=== PATIENT | female | born 1980 | race Caucasian/White ===

== ENCOUNTER 2016-10-31 08:39 | Emergency (ER) | payer OTHER, SELFPAY ==
[2016-10-31 08:48] VITALS: PULSE 86; O2SAT 97
--- NOTE | 2016-10-31 08:59 | ERPHSYRPT ---
- History of Present Illness Time Seen by Provider: 10/31/16 08:50 Source: patient Exam Limitations: no limitations Patient Subjective Stated Complaint: pt co pain to right foot. she was seen monday for a fracture to that foot and has a walking boot in place, she staes has been working on it and then yesterday her step son set on her foot, Triage Nursing Assessment: bruising no outer aspect of foot, no swelling, has strong pedal pulse, warm to touch, sees scott tomorrow Method of Injury: direct blow Occurred: last week Quality: aching Severity of Pain-Max: moderate Severity of Pain-Current: moderate Lower Extremities Pain: foot: right Modifying Factors: Improves With: movement Allergies/Adverse Reactions: bupropion HCl [From Wellbutrin] Allergy (Verified 10/25/16 08:08) Rash Tetanus Vaccines and Toxoid Allergy (Verified 10/25/16 08:08) Home Medications: Clonazepam [Klonopin] 1 mg PO BID 04/19/15 [History] Quetiapine Fumarate [Seroquel] 100 mg PO HS 02/08/16 [History] Pregabalin [Lyrica] 75 mg PO BID 05/15/16 [History] Lisinopril [Zestril] 10 mg PO DAILY 10/25/16 [History] Tizanidine HCl 4 mg [Zanaflex 4 MG] 4 mg HS 10/31/16 [History] Hx Tetanus, Diphtheria Vaccination/Date Given: Yes Hx Influenza Vaccination/Date Given: No Hx Pneumococcal Vaccination/Date Given: No Immunizations Up to Date: Yes - Review of Systems Constitutional: No Symptoms Eyes: No Symptoms Ears, Nose, & Throat: No Symptoms Respiratory: No Symptoms Cardiac: No Symptoms Abdominal/Gastrointestinal: No Symptoms Musculoskeletal: Joint Pain Skin: No Symptoms Neurological: No Symptoms Psychological: No Symptoms Endocrine: No Symptoms Hematologic/Lymphatic: No Symptoms Immunological/Allergic: No Symptoms - Past Medical History Pertinent Past Medical History: Yes Neurological History: Seizures ENT History: No Pertinent History Cardiac History: Congestive Heart Failure Respiratory History: CHF Endocrine Medical History: No Pertinent History Musculoskeletal History: No Pertinent History, Fibromyalgia GI Medical History: No Pertinent History History: No Pertinent History Psycho-Social History: Anxiety, Bipolar, Depression Female Reproductive Disorders: No Pertinent History Other Medical History: PREECLAMPSIA. 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 - Past Surgical History Past Surgical History: Yes Neuro Surgical History: Other Cardiac: No Pertinent History Respiratory: No Pertinent History Gastrointestinal: No Pertinent History Genitourinary: No Pertinent History Musculoskeletal: No Pertinent History Female Surgical History: Section, Tubal Ligation Other Surgical History: cyst removed from brain as stated per pt - Social History Smoking Status: Never smoker Exposure to second hand smoke: Yes Alcohol Use: Socially Drug Use: none Patient Lives Alone: No Significant Family History: no pertinent family hx - Female History Hx Last Menstrual Period: week ago Hx Now: No (tubal) - Nursing Vital Signs Nursing Vital Signs: Initial Vital Signs Temperature 97.5 F Temperature Source Oral Pulse Rate 86 Respiratory Rate 16 Blood Pressure 117/65 Pain Intensity 8 - Physical Exam General Appearance: moderate distress Eyes, Ears, Nose, Throat Exam: normal ENT inspection Neck Exam: normal inspection, non-tender, supple, full range of motion Cardiovascular/Respiratory Exam: chest non-tender, normal breath sounds, heart sounds normal Gastrointestinal/Abdominal Exam: non-tender, soft Hips Exam: bilateral: non-tender, normal range of motion, no evidence of injury Legs Exam: bilateral leg: non-tender, normal inspection, normal range of motion , no evidence of injury Knees Exam: bilateral knee: non-tender, normal inspection, normal range of motion, no evidence of injury Foot Exam: right foot: ecchymosis, limited range of motion, pain, soft tissue tenderness, swelling, left foot: non-tender, normal inspection, normal range of motion, no evidence of injury Neuro/Tendon Exam: normal sensation, normal motor functions, normal tendon functions, responds to pain Mental Status Exam: alert, oriented x 3, cooperative Skin Exam: normal color, warm, dry SpO2 Interpretation: normal SpO2: 97 Oxygen Delivery: Room Air - Course Nursing assessment & vital signs reviewed: Yes - Progress Progress: unchanged Counseled pt/family regarding: diagnosis, need for follow-up (with ortho as scheduled tomorrow) - Departure Time of Disposition: 09:00 Departure Disposition: Home Clinical Impression: Metatarsal bone fracture Qualifiers: Encounter type: subsequent encounter Metatarsal bone: fifth Fracture type: closed Fracture alignment: nondisplaced Laterality: right Fracture healing: with routine healing Qualified Code(s): S92.354D - Nondisplaced fracture of fifth metatarsal bone, right foot, subsequent encounter for fracture with routine healing Condition: Stable Critical Care Time: No Instructions: Foot Fracture, Contusion
[2016-10-31 09:14] VITALS: BP 120/70
== END 2016-10-31 09:13 | disposition home or self-care (01) ==
LOC: ED 08:39
DX: S92.354D Nondisplaced fracture of fifth metatarsal bone, right foot, subsequent encounter for fracture with routine healing (principal); I50.9 Heart failure, unspecified; Z79.899 Other long term (current) drug therapy
CPT/HCPCS: 99282

== ENCOUNTER 2016-11-07 10:09 | Emergency (ER) | payer OTHER, SELFPAY ==
[2016-11-07] MEDS ORDERED: Zofran 4 MG/2 ML VIAL IV ONE (10:54)
[2016-11-07] MEDS ORDERED: Sodium Chloride 0.9% 1000 ML 1,000 ML IV STA ×2 (10:54→11:39)
[2016-11-07] MEDS ORDERED: Sodium Chloride 0.9% 1000 ML 1,000 ML ONE ×2 (11:00→11:40)
[2016-11-07] MEDS ORDERED: Zofran 4 MG/2 ML VIAL ONE (11:00)
[2016-11-07 11:09] LABS: Mean Cell Volume 92.7 fl (78-100); Mean Corpuscular Hemoglobin 30.8 pg (26-32); Mean Platelet Volume 9.5 fl (6-9.5); Platelet Count 299 K/mm3 (150-450); Red Blood Count 4.93 M/mm3 (4.1-5.4); Red Cell Distribution Width 13.3 % (11.5-14.0); White Blood Count 13.7 K/mm3 (4.0-10.5)
[2016-11-07 11:12] LABS: COMPLETE URINE MICROSCOPIC? YES; Collection Type VOID; Ph 5.5 (5-6)
[2016-11-07 11:22] LABS: Bacteria FEW /HPF (NEGATIVE); Epithelial Cells MODERATE /HPF (FEW); Mucus MODERATE /HPF (NEGATIVE); WBC 0-2 /HPF (0-5)
[2016-11-07 11:22] LABS: ALBUMIN 4.6 g/dL (3.4-5.0); ALKALINE PHOSPHATASE 48 U/L (46-116); ANION GAP 17.3 MEQ/L (5-15); BILIRUBIN,TOTAL 0.7 mg/dL (0.2-1.0); BLOOD UREA NITROGEN 14 mg/dL (9-20); CHLORIDE 103 mEq/L (98-107); Carbon Dioxide 24.3 mEq/L (21-32); Glucose 134 MG/DL (70-110); LIPASE 94 U/L (73-393); Potassium 3.6 mEq/L (3.5-5.1); SGOT/AST 23 U/L (15-37); SGPT/ALT 19 U/L (12-78); SODIUM 141 mEq/L (136-145); Total Protein 8.5 gm/dL (6.4-8.2)
[2016-11-07 11:31] LABS: Platelet Estimate NORMAL (NORMAL); Total Cells Counted 100; Toxic Granulation 2+
--- NOTE | 2016-11-07 11:42 | XRAY ---
Indication: Nausea, vomiting, and diarrhea. Comparison: [facility] August 05, 2016 2 views of the abdomen again nonacute and nonobstructed. Solid organs and osseous structures unremarkable. Single PA chest demonstrates normal heart, lungs, and bony thorax. Impression: Stable negative abdomen and normal 1 view chest.
--- NOTE | 2016-11-07 13:05 | ERPHSYRPT ---
- History of Present Illness Time Seen by Provider: 11/07/16 10:20 Historian: patient Exam Limitations: clinical condition Patient Subjective Stated Complaint: PT REPORTS N/V/D ALL NIGHT-REPORTS ABD PAIN INTERMITTANT-UNSURE OF FEVER-STATES THAT SHE VOMITED HER ANXIETY MEDS Triage Nursing Assessment: PT PALE WARM ET DRY-A & O X 3-RESP NONLABORED-ABD SOFT ET TENDER TO PALP-BOWEL SOUNDS HYPERACTIVE Physician History: PATIENT COMPLAINS OF FREQUENT EPISODES OF EMESIS, DRY HEAVES AND WATERY DIARRHEA. HAS ABDOMINAL CRAMPS. DENIES FEVER, URINARY SYMPTOMS. Timing/Duration: yesterday Activities at Onset: none Abdominal Pain Onset Location: periumbilical Pain Radiation: no radiation Severity of Pain-Max: mild Severity of Pain-Current: none Associated Symptoms: diarrhea, nausea, vomiting Previous symptoms: no prior history Allergies/Adverse Reactions: bupropion HCl [From Wellbutrin] Allergy (Verified 11/07/16 10:24) Rash Tetanus Vaccines and Toxoid Allergy (Verified 11/07/16 10:24) Home Medications: Clonazepam [Klonopin] 1 mg PO BID 04/19/15 [History] Quetiapine Fumarate [Seroquel] 100 mg PO HS 02/08/16 [History] Pregabalin [Lyrica] 75 mg PO BID 05/15/16 [History] Lisinopril [Zestril] 10 mg PO DAILY 10/25/16 [History] Tizanidine HCl 4 mg [Zanaflex 4 MG] 4 mg HS 10/31/16 [History] Hx Tetanus, Diphtheria Vaccination/Date Given: Yes Hx Influenza Vaccination/Date Given: No Hx Pneumococcal Vaccination/Date Given: No Immunizations Up to Date: Yes - Review of Systems Constitutional: No Fever, No Chills Eyes: No Symptoms Ears, Nose, & Throat: No Symptoms Respiratory: No Symptoms, No Cough, No Dyspnea Cardiac: No Symptoms, No Chest Pain, No Edema, No Syncope Abdominal/Gastrointestinal: Abdominal Pain, Nausea, Vomiting, Diarrhea Genitourinary Symptoms: No Symptoms, No Dysuria Musculoskeletal: No Symptoms, No Back Pain, No Neck Pain Skin: No Symptoms, No Rash Neurological: No Dizziness, No Focal Weakness, No Sensory Changes Psychological: No Symptoms Endocrine: No Symptoms All Other Systems: Reviewed and Negative - Past Medical History Pertinent Past Medical History: Yes Neurological History: Seizures ENT History: No Pertinent History Cardiac History: Congestive Heart Failure Respiratory History: CHF Endocrine Medical History: No Pertinent History Musculoskeletal History: No Pertinent History, Fibromyalgia GI Medical History: No Pertinent History History: No Pertinent History Psycho-Social History: Anxiety, Bipolar, Depression Female Reproductive Disorders: No Pertinent History Other Medical History: PREECLAMPSIA. 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 - Past Surgical History Past Surgical History: Yes Neuro Surgical History: Other Cardiac: No Pertinent History Respiratory: No Pertinent History Gastrointestinal: No Pertinent History Genitourinary: No Pertinent History Musculoskeletal: No Pertinent History Female Surgical History: Section, Tubal Ligation Other Surgical History: cyst removed from brain as stated per pt - Social History Smoking Status: Never smoker Exposure to second hand smoke: Yes Alcohol Use: Socially Drug Use: none Patient Lives Alone: No Significant Family History: no pertinent family hx - Female History Hx Last Menstrual Period: 2 WKS AGO Hx Now: No (tubal) - Nursing Vital Signs Nursing Vital Signs: Initial Vital Signs Temperature 99.4 F Temperature Source Oral Pulse Rate 99 Respiratory Rate 20 Blood Pressure 123/83 Pain Intensity 4 - Physical Exam General Appearance: no apparent distress, alert Eye Exam: PERRL/EOMI, eyes nml inspection Ears, Nose, Throat Exam: normal ENT inspection, pharynx normal, moist mucous membranes Neck Exam: normal inspection, non-tender, supple, full range of motion Respiratory Exam: normal breath sounds, lungs clear, No respiratory distress Cardiovascular Exam: regular rate/rhythm, normal heart sounds Gastrointestinal/Abdomen Exam: soft, normal bowel sounds, tenderness (MINIMAL PERIUMBILICAL TENDERNESS), No mass Back Exam: normal inspection, normal range of motion, No CVA tenderness, No vertebral tenderness Extremity Exam: normal inspection, normal range of motion, pelvis stable Neurologic Exam: alert, oriented x 3, cooperative, normal mood/affect, nml cerebellar function, sensation nml, No motor deficits Skin Exam: normal color, warm, dry SpO2: 98 Oxygen Delivery: Room Air - Radiology Exams Hand X-ray Interpretation: Discussed w/ radiologist, Negative Ordered Tests: Active Orders 24 hr Category Date Time Status Clean Catch Urine Specimen STAT Care 11/07/16 10:54 Active IV Insertion STAT Care 11/07/16 10:54 Active OBSTR/ACUTE ABDOMEN SERIES Stat Exams 11/07/16 10:57 Completed AMYLASE Stat Lab 11/07/16 10:30 Completed CBC W DIFF Stat Lab 11/07/16 10:30 Completed CMP Stat Lab 11/07/16 10:30 Completed HCG,QUALITATIVE URINE Stat Lab 11/07/16 11:00 Completed LIPASE Stat Lab 11/07/16 10:30 Completed Manual Differential NC Stat Lab 11/07/16 10:30 Completed UA W/ MICROSCOPIC Stat Lab 11/07/16 11:00 Completed Medication Summary Discontinued Medications Generic Name Dose Route Start Last Admin Trade Name Freq PRN Reason Stop Dose Admin Sodium Chloride 1,000 mls @ 999 mls/hr 11/07/16 10:54 11/07/16 11:09 Sodium Chloride 0.9% 1000 Ml IV 11/07/16 11:54 999 mls/hr .Q1H1M STA Administration Sodium Chloride Confirm 11/07/16 11:00 Sodium Chloride 0.9% 1000 Ml Administered 11/07/16 11:01 Dose 1,000 mls @ ud .ROUTE .STK-MED ONE Sodium Chloride 1,000 mls @ 999 mls/hr 11/07/16 11:39 11/07/16 12:05 Sodium Chloride 0.9% 1000 Ml IV 11/07/16 12:39 999 mls/hr .Q1H1M STA Administration Sodium Chloride Confirm 11/07/16 11:40 Sodium Chloride 0.9% 1000 Ml Administered 11/07/16 11:41 Dose 1,000 mls @ ud .ROUTE .STK-MED ONE Ondansetron HCl 4 mg 11/07/16 10:54 11/07/16 11:09 Zofran 4 Mg/2 Ml Vial IV 11/07/16 10:55 4 mg STAT ONE Administration Ondansetron HCl Confirm 11/07/16 11:00 Zofran 4 Mg/2 Ml Vial Administered 11/07/16 11:01 Dose 4 mg .ROUTE .STK-MED ONE Lab/Rad Data: Laboratory Result Diagrams 11/07/16 10:30 11/07/16 10:30 Laboratory Results 11/07/16 11/07/16 11/07/16 Range/Units 11:00 11:00 10:30 WBC (4.0-10.5) K/mm3 RBC (4.1-5.4) M/mm3 Hgb (12.0-16.0) gm/dl Hct (35-47) % MCV (78-100) fl MCH (26-32) pg MCHC (32-36) g/dl RDW (11.5-14.0) % Plt Count (150-450) K/mm3 MPV (6-9.5) fl Segmented Neutrophils (36.0-66.0) % Lymphocytes (Manual) (24-44) % Monocytes (Manual) (0.0-12.0) % Differential Comment Toxic Granulation Platelet Estimate (NORMAL) Sodium 141 (136-145) mEq/L Potassium 3.6 (3.5-5.1) mEq/L Chloride 103 (98-107) mEq/L Carbon Dioxide 24.3 (21-32) mEq/L Anion Gap 17.3 H (5-15) MEQ/L BUN 14 (9-20) mg/dL Creatinine 0.91 (0.55-1.30) mg/dl Estimated GFR > 60 ML/MIN Glucose 134 H (70-110) MG/DL Calcium 9.3 (8.5-10.1) mg/dL Total Bilirubin 0.7 (0.2-1.0) mg/dL AST 23 (15-37) U/L ALT 19 (12-78) U/L Alkaline Phosphatase 48 (46-116) U/L Serum Total Protein 8.5 H (6.4-8.2) gm/dL Albumin 4.6 (3.4-5.0) g/dL Amylase 41 (25-115) U/L Lipase 94 (73-393) U/L Ur Collection Type VOID Urine Color YELLOW (YELLOW) Urine Appearance SLIGHTLY CLOUDY (CLEAR) Urine pH 5.5 (5-6) Ur Specific Orestes >=1.030 (1.005-1.025) Urine Protein 100 (Negative) Urine Glucose (UA) NEGATIVE (NEGATIVE) mg/dL Urine Ketones MODERATE-40 (NEGATIVE) Urine Nitrite NEGATIVE (NEGATIVE) Urine Bilirubin SMALL (NEGATIVE) Urine Urobilinogen 0.2 (0-1) mg/dL Urine WBC (Auto) NEGATIVE (NEGATIVE) Urine RBC (Auto) MODERATE (0-5) Keyur/ul Urine Microscopic RBC 0-2 (0-2) /HPF Urine Microscopic WBC 0-2 (0-5) /HPF Ur Epithelial Cells MODERATE (FEW) /HPF Urine Bacteria FEW (NEGATIVE) /HPF Urine Mucus MODERATE (NEGATIVE) /HPF Urine HCG, Qual NEGATIVE (Negative) Specimen Received 11/07/16 1100 11/07/16 Range/Units 10:30 WBC 13.7 H (4.0-10.5) K/mm3 RBC 4.93 (4.1-5.4) M/mm3 Hgb 15.2 (12.0-16.0) gm/dl Hct 45.7 (35-47) % MCV 92.7 (78-100) fl MCH 30.8 (26-32) pg MCHC 33.3 (32-36) g/dl RDW 13.3 (11.5-14.0) % Plt Count 299 (150-450) K/mm3 MPV 9.5 (6-9.5) fl Segmented Neutrophils 95 H (36.0-66.0) % Lymphocytes (Manual) 3 L (24-44) % Monocytes (Manual) 2 (0.0-12.0) % Differential Comment NORMAL Toxic Granulation 2+ Platelet Estimate NORMAL (NORMAL) Sodium (136-145) mEq/L Potassium (3.5-5.1) mEq/L Chloride (98-107) mEq/L Carbon Dioxide (21-32) mEq/L Anion Gap (5-15) MEQ/L BUN (9-20) mg/dL Creatinine (0.55-1.30) mg/dl Estimated GFR ML/MIN Glucose (70-110) MG/DL Calcium (8.5-10.1) mg/dL Total Bilirubin (0.2-1.0) mg/dL AST (15-37) U/L ALT (12-78) U/L Alkaline Phosphatase (46-116) U/L Serum Total Protein (6.4-8.2) gm/dL Albumin (3.4-5.0) g/dL Amylase (25-115) U/L Lipase (73-393) U/L Ur Collection Type Urine Color (YELLOW) Urine Appearance (CLEAR) Urine pH (5-6) Ur Specific Orestes (1.005-1.025) Urine Protein (Negative) Urine Glucose (UA) (NEGATIVE) mg/dL Urine Ketones (NEGATIVE) Urine Nitrite (NEGATIVE) Urine Bilirubin (NEGATIVE) Urine Urobilinogen (0-1) mg/dL Urine WBC (Auto) (NEGATIVE) Urine RBC (Auto) (0-5) Keyur/ul Urine Microscopic RBC (0-2) /HPF Urine Microscopic WBC (0-5) /HPF Ur Epithelial Cells (FEW) /HPF Urine Bacteria (NEGATIVE) /HPF Urine Mucus (NEGATIVE) /HPF Urine HCG, Qual (Negative) Specimen Received - Progress Progress: improved Progress Note: 11/07/16 13:02 PATIENT GIVEN 2 LITERS NORMAL SALINE, ZOFRAN 4MG, PROTONIX 40MG IV - Departure Time of Disposition: 13:15 Departure Disposition: Home Clinical Impression: ACUTE GASTROENTERITIS, DEHYDRATION Condition: Stable Critical Care Time: No Additional Instructions: BEGIN CLEAR LIQUID DIET FOR 24 HOURS, THEN ADVANCE DIET TOLERATED. ZOFRAN 4MG EVERY 4 HOURS FOR NAUSEA NEEDED. TAKE OVER THE COUNTER IMODIUM FOR DIARRHEA EVERY 4 HOURS NEEDED FOR 48 HOUR DURATION. Prescriptions: Ondansetron [Zofran Odt] 4 mg PO Q4H PRN PRN #4 tab.rapdis PRN Reason: Nausea
[2016-11-07 13:12] VITALS: BP 122/82; PULSE 95; O2SAT 97
== END 2016-11-07 13:11 | disposition home or self-care (01) ==
LOC: ED 10:09
DX: K52.9 Noninfective gastroenteritis and colitis, unspecified (principal); E86.0 Dehydration; R10.9 Unspecified abdominal pain; R11.2 Nausea with vomiting, unspecified; R19.7 Diarrhea, unspecified
CPT/HCPCS: 36000; 36415; 74022; 80053; 81000; 82150; 83690; 84703; 85025; 96360; 96361; 96374; 99283; J2405

== ENCOUNTER 2017-07-05 09:51 | Emergency (ER) | payer OTHER, SELFPAY ==
[2017-07-05 10:02] VITALS: PULSE 90
--- NOTE | 2017-07-05 10:14 | ERPHSYRPT ---
- History of Present Illness Time Seen by Provider: 07/05/17 10:07 Source: patient Exam Limitations: no limitations Patient Subjective Stated Complaint: Pt states "I have a horrible toothache and I am waiting for my insurance to kick back in. I have tried everything at home and nothing is helping." Triage Nursing Assessment: pt alert and orienting X 3, skin pwd pt ambulates without difficulties, able to speak in full sentences. dental carries noted. Physician History: Pt. with toothache for past 2-3 days. States dull ache to R upper teeth, constant, localized and pain worse with chewing and heat/cold exposure. Pt. taking Motrin and Tylenol with minimal relief Timing/Duration: day(s) (3) Severity: moderate Modifying Factors: Improves With: eating (worsens), acetaminophen (improves) Associated Symptoms: No nausea, No vomiting, No shortness of breath, No fever Allergies/Adverse Reactions: bupropion HCl [From Wellbutrin] Allergy (Verified 11/07/16 10:24) Rash Tetanus Vaccines and Toxoid Allergy (Verified 07/05/17 10:02) Hx Tetanus, Diphtheria Vaccination/Date Given: No Hx Influenza Vaccination/Date Given: No Hx Pneumococcal Vaccination/Date Given: No Immunizations Up to Date: Yes - Review of Systems Constitutional: No Fever, No Chills Eyes: No Symptoms Ears, Nose, & Throat: Mouth Pain, No Loose Teeth Respiratory: No Cough, No Dyspnea Cardiac: No Chest Pain, No Edema, No Syncope Abdominal/Gastrointestinal: No Abdominal Pain, No Nausea, No Vomiting, No Diarrhea Genitourinary Symptoms: No Dysuria Musculoskeletal: No Back Pain, No Neck Pain Skin: No Rash Neurological: No Dizziness, No Focal Weakness, No Sensory Changes Psychological: No Symptoms Endocrine: No Symptoms All Other Systems: Reviewed and Negative - Past Medical History Pertinent Past Medical History: Yes Neurological History: Seizures ENT History: No Pertinent History Cardiac History: Congestive Heart Failure Respiratory History: CHF Endocrine Medical History: No Pertinent History Musculoskeletal History: No Pertinent History, Fibromyalgia GI Medical History: No Pertinent History History: No Pertinent History Psycho-Social History: Anxiety, Bipolar, Depression Female Reproductive Disorders: No Pertinent History Other Medical History: PREECLAMPSIA. 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 - Past Surgical History Past Surgical History: Yes Neuro Surgical History: Other Cardiac: No Pertinent History Respiratory: No Pertinent History Gastrointestinal: No Pertinent History Genitourinary: No Pertinent History Musculoskeletal: No Pertinent History Female Surgical History: Section, Tubal Ligation Other Surgical History: cyst removed from brain as stated per pt - Social History Smoking Status: Never smoker Exposure to second hand smoke: Yes Alcohol Use: Socially Drug Use: none Patient Lives Alone: No Significant Family History: no pertinent family hx - Female History Hx Last Menstrual Period: 06/18/2017 Hx Now: No (tubal) - Nursing Vital Signs Nursing Vital Signs: Initial Vital Signs Temperature 98.8 F 07/05/17 09:55 Pulse Rate 90 07/05/17 09:55 Respiratory Rate 16 07/05/17 09:55 Blood Pressure 156/97 07/05/17 09:55 O2 Sat by Pulse Oximetry 99 07/05/17 09:55 Pain Scale Pain Intensity 7 - Physical Exam General Appearance: no apparent distress, alert Eye Exam: PERRL/EOMI, eyes nml inspection Ears, Nose, Throat Exam: TMs normal, pharynx normal, moist mucous membranes, other (Multiple cavities and dark color teeth noted. Tenderness/swelling to R upper molar area) Neck Exam: normal inspection, non-tender, supple, full range of motion Respiratory Exam: normal breath sounds, lungs clear, No respiratory distress Cardiovascular Exam: regular rate/rhythm, normal heart sounds, normal peripheral pulses Gastrointestinal/Abdomen Exam: soft, normal bowel sounds, No tenderness, No mass Back Exam: normal inspection, normal range of motion, No CVA tenderness, No vertebral tenderness Extremity Exam: normal inspection, normal range of motion, pelvis stable Neurologic Exam: alert, oriented x 3, cooperative, normal mood/affect, nml cerebellar function, nml station & gait, sensation nml, No motor deficits Skin Exam: normal color, warm, dry, No rash Lymphatic Exam: No adenopathy SpO2: 99 Oxygen Delivery: Room Air - Course Nursing assessment & vital signs reviewed: Yes - Progress Progress: improved Counseled pt/family regarding: diagnosis - Departure Time of Disposition: 10:14 Departure Disposition: Home Clinical Impression: Dental caries Condition: Stable Critical Care Time: No Referrals: CHRIS MCCALL [Primary Care Provider] - Instructions: Tooth Decay Additional Instructions: RX: [facility]/[place] Return for worse pain, swelling, fever. vomiting or any problems Prescriptions: Hydrocodone Bit/Acetaminophen [[place] 5-325 Tablet] 1 each PO Q6H PRN PRN #12 tablet PRN Reason: Pain Penicillin V Potassium 500 mg PO QID #40 tablet
[2017-07-05 10:36] VITALS: BP 158/94; O2SAT 98
== END 2017-07-05 10:36 | disposition home or self-care (01) ==
LOC: ED 09:51
DX: K02.9 Dental caries, unspecified (principal)
CPT/HCPCS: 99281; 99283

== ENCOUNTER 2018-12-20 01:12 | Emergency (ER) | payer OTHER ==
[2018-12-20 01:29] VITALS: O2SAT 100
[2018-12-20] MEDS ORDERED: Zofran 4 MG/2 ML VIAL IV ONE (01:35)
[2018-12-20] MEDS ORDERED: Sodium Chloride 0.9% 1000 ML 1,000 ML IV STA (01:35)
[2018-12-20] MEDS ORDERED: Sodium Chloride 0.9% 1000 ML 1,000 ML ONE ×2 (01:38→03:45)
[2018-12-20] MEDS ORDERED: Zofran 4 MG/2 ML VIAL ONE ×2 (01:38→04:17)
--- NOTE | 2018-12-20 01:43 | ERPHSYRPT ---
- History of Present Illness Time Seen by Provider: 12/20/18 01:36 Historian: patient Exam Limitations: no limitations Patient Subjective Stated Complaint: Vomiting Triage Nursing Assessment: Patient ambulated back to ED and transferred self to bed. Patient A+O X3. Skin pink, warm and dry. Patient denies pain or discomfort. Lungs clear a/p gerardo. Patient states she has been vomiting for 3 days. Patient's abdomen soft and round with positive bs x4. Patient states she thinks she ate bad eggs because her entire family was sick after eating them. Physician History: 38-year-old white female arrives with complaint of vomiting for 3 days she denies any abdominal pain she states she is not having diarrhea. She does state that she thinks she might of a bad ache she states other family members had similar symptoms. 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 Past surgical history includes , tubal ligation, colloid cyst removed, . There are blood cultures social history denies tobacco alcohol or illicit drug use Timing/Duration: day(s) (3 days) Activities at Onset: none Quality: other (no pain) Pain Radiation: other (no pain) Severity of Pain-Max: none Severity of Pain-Current: none Modifying Factors: Improves With: other (the patient thinks she might have eaten a bad egg) Associated Symptoms: nausea, vomiting, No back, No chest pain, No diaphoresis, No diarrhea, No fever/chills, No fatigue, No headache, No heartburn, No loss of appetite, No neck pain, No rash, No shortness of breath, No syncope Previous symptoms: no prior history Allergies/Adverse Reactions: bupropion HCl [From Wellbutrin] Allergy (Verified 12/20/18 01:16) Rash Tetanus Vaccines and Toxoid Allergy (Verified 12/20/18 01:16) Hx Tetanus, Diphtheria Vaccination/Date Given: No Hx Influenza Vaccination/Date Given: No Hx Pneumococcal Vaccination/Date Given: No Immunizations Up to Date: Yes - Review of Systems Constitutional: No Fever, No Chills Eyes: No Symptoms Ears, Nose, & Throat: No Symptoms Respiratory: No Cough, No Dyspnea Cardiac: No Chest Pain, No Edema, No Syncope Abdominal/Gastrointestinal: Nausea, Vomiting, No Abdominal Pain, No Diarrhea, No Constipation, No Hematemesis, No Hematochezia, No Melena, No Dysphagia Genitourinary Symptoms: No Dysuria Musculoskeletal: No Back Pain, No Neck Pain Skin: No Rash Neurological: No Dizziness, No Focal Weakness, No Sensory Changes Psychological: No Symptoms Endocrine: No Symptoms All Other Systems: Reviewed and Negative - Past Medical History Pertinent Past Medical History: Yes Neurological History: Seizures ENT History: No Pertinent History Cardiac History: Congestive Heart Failure Respiratory History: CHF Endocrine Medical History: No Pertinent History Musculoskeletal History: No Pertinent History, Fibromyalgia GI Medical History: No Pertinent History History: No Pertinent History Psycho-Social History: Anxiety, Bipolar, Depression Female Reproductive Disorders: No Pertinent History Other Medical History: PREECLAMPSIA. 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 - Past Surgical History Past Surgical History: Yes Neuro Surgical History: Other Cardiac: No Pertinent History Respiratory: No Pertinent History Gastrointestinal: No Pertinent History Genitourinary: No Pertinent History Musculoskeletal: No Pertinent History Female Surgical History: Section, Tubal Ligation Other Surgical History: cyst removed from brain as stated per pt - Social History Smoking Status: Never smoker Exposure to second hand smoke: Yes Alcohol Use: Socially Drug Use: none Patient Lives Alone: No Significant Family History: no pertinent family hx - Female History Hx Last Menstrual Period: 3 weeks agp Hx Now: No - Nursing Vital Signs Nursing Vital Signs: Initial Vital Signs Temperature 97.8 F 12/20/18 01:18 Pulse Rate 128 H 12/20/18 01:18 Respiratory Rate 20 12/20/18 01:18 Blood Pressure 139/94 12/20/18 01:18 O2 Sat by Pulse Oximetry 100 12/20/18 01:18 Pain Scale Pain Intensity 0 - Physical Exam General Appearance: no apparent distress, alert Eye Exam: PERRL/EOMI, eyes nml inspection Ears, Nose, Throat Exam: normal ENT inspection, pharynx normal, moist mucous membranes Neck Exam: normal inspection, non-tender, supple, full range of motion Respiratory Exam: normal breath sounds, lungs clear, No respiratory distress Cardiovascular Exam: regular rate/rhythm, normal heart sounds, capillary refill <2 sec Gastrointestinal/Abdomen Exam: soft, No tenderness, No mass Back Exam: normal inspection, normal range of motion, No CVA tenderness, No vertebral tenderness Extremity Exam: normal inspection, normal range of motion, pelvis stable Neurologic Exam: alert, oriented x 3, cooperative, 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 tested, normal mood/affect, nml cerebellar function, sensation nml, No motor deficits Skin Exam: normal color, warm, dry SpO2 Interpretation: normal (100%) SpO2: 100 Ordered Tests: Active Orders 24 hr Category Date Time Status IV Insertion STAT Care 12/20/18 01:35 Active AMYLASE Stat Lab 12/20/18 01:30 Completed CBC W DIFF Stat Lab 12/20/18 01:30 Completed CMP Stat Lab 12/20/18 01:30 Completed CULTURE,URINE Stat Lab 12/20/18 01:30 Received HCG QUALITATIVE,SERUM Stat Lab 12/20/18 01:30 Completed LIPASE Stat Lab 12/20/18 01:30 Completed UA W/RFX UR CULTURE Stat Lab 12/20/18 01:30 Completed UA W/RFX UR CULTURE Stat Lab 12/20/18 01:35 Uncollected Medication Summary Discontinued Medications Generic Name Dose Route Start Last Admin Trade Name Freq PRN Reason Stop Dose Admin Sodium Chloride 1,000 mls @ 999 mls/hr 12/20/18 01:35 12/20/18 04:07 Sodium Chloride 0.9% 1000 Ml IV 12/20/18 02:35 Infused .Q1H1M STA Infusion Sodium Chloride Confirm 12/20/18 01:38 Sodium Chloride 0.9% 1000 Ml Administered 12/20/18 01:39 Dose 1,000 mls @ ud .ROUTE .STK-MED ONE Sodium Chloride Confirm 12/20/18 03:45 Sodium Chloride 0.9% 1000 Ml Administered 12/20/18 03:46 Dose 1,000 mls @ ud .ROUTE .STK-MED ONE Ondansetron HCl 4 mg 12/20/18 01:35 12/20/18 01:38 Zofran 4 Mg/2 Ml Vial IV 12/20/18 01:36 4 mg STAT ONE Administration Ondansetron HCl Confirm 12/20/18 01:38 Zofran 4 Mg/2 Ml Vial Administered 12/20/18 01:39 Dose 4 mg .ROUTE .STK-MED ONE Ondansetron HCl Confirm 12/20/18 04:17 Zofran 4 Mg/2 Ml Vial Administered 12/20/18 04:18 Dose 4 mg .ROUTE .STK-MED ONE Potassium Chloride Confirm 12/20/18 02:51 Klor Con 10 Meq Administered 12/20/18 02:52 Dose 40 meq PO .STK-MED ONE Lab/Rad Data: Laboratory Result Diagrams 12/20/18 01:30 12/20/18 01:30 Laboratory Results 12/20/18 12/20/18 12/20/18 Range/Units 01:30 01:30 01:30 WBC (4.0-10.5) K/mm3 RBC (4.1-5.4) M/mm3 Hgb (12.0-16.0) gm/dl Hct (35-47) % MCV (78-100) fl MCH (26-32) pg MCHC (32-36) g/dl RDW (11.5-14.0) % Plt Count (150-450) K/mm3 MPV (6-9.5) fl Gran % (36.0-66.0) % Eos # (Auto) (0-0.5) Absolute Lymphs (auto) (1.0-4.6) Absolute Monos (auto) (0.0-1.3) Lymphocytes % (24.0-44.0) % Monocytes % (0.0-12.0) % Eosinophils % (0.00-5.0) % Basophils % (0.0-0.4) % Absolute Granulocytes (1.4-6.9) Basophils # (0-0.4) Sodium 139 (137-145) mmol/L Potassium 3.1 L (3.5-5.1) mmol/L Chloride 102 (98-107) mmol/L Carbon Dioxide 18 L (22-30) mmol/L Anion Gap 22.1 H (5-15) MEQ/L BUN 15 (7-17) mg/dL Creatinine 1.04 (0.52-1.04) mg/dL Estimated GFR > 60.0 ML/MIN Glucose 173 H (74-106) mg/dL Calcium 9.8 (8.4-10.2) mg/dL Total Bilirubin 0.70 (0.2-1.3) mg/dL AST 20 (14-36) U/L ALT 19 (0-35) U/L Alkaline Phosphatase 66 (38-126) U/L Serum Total Protein 9.0 H (6.3-8.2) g/dL Albumin 5.4 H (3.5-5.0) g/dL Amylase 69 (30-110) U/L Lipase 27 (23-300) U/L Serum , Qual NEGATIVE (Negative) Urine Color YELLOW (YELLOW) Urine Appearance SLIGHTLY CLOUDY (CLEAR) Urine pH 5.0 (5-6) Ur Specific [place] 1.027 (1.005-1.025) Urine Protein 100 (Negative) Urine Ketones SMALL (NEGATIVE) Urine Blood LARGE (0-5) Key[place]/ul Urine Nitrite NEGATIVE (NEGATIVE) Urine Bilirubin NEGATIVE (NEGATIVE) Urine Urobilinogen NORMAL (0-1) mg/dL Ur Leukocyte Esterase NEGATIVE (NEGATIVE) Urine WBC (Auto) 0-2 (0-5) /HPF Urine RBC (Auto) 51-100 (0-2) /HPF U Hyaline Cast (Auto) 6-10 (0-2) /LPF U Epithel Cells (Auto) RARE (FEW) /HPF Urine Bacteria (Auto) NONE (NEGATIVE) /HPF Urine Mucus (Auto) SLIGHT (NEGATIVE) /HPF Urine Culture Reflexed YES (NO) Urine Glucose NEGATIVE (NEGATIVE) mg/dL 12/20/18 Range/Units 01:30 WBC 13.4 H (4.0-10.5) K/mm3 RBC 4.72 (4.1-5.4) M/mm3 Hgb 14.6 (12.0-16.0) gm/dl Hct 43.5 (35-47) % MCV 92.2 (78-100) fl MCH 30.9 (26-32) pg MCHC 33.6 (32-36) g/dl RDW 13.3 (11.5-14.0) % Plt Count 277 (150-450) K/mm3 MPV 10.5 H (6-9.5) fl Gran % 81.3 H (36.0-66.0) % Eos # (Auto) 0.02 (0-0.5) Absolute Lymphs (auto) 1.44 (1.0-4.6) Absolute Monos (auto) 1.05 (0.0-1.3) Lymphocytes % 10.7 L (24.0-44.0) % Monocytes % 7.8 (0.0-12.0) % Eosinophils % 0.1 (0.00-5.0) % Basophils % 0.1 (0.0-0.4) % Absolute Granulocytes 10.92 H (1.4-6.9) Basophils # 0.01 (0-0.4) Sodium (137-145) mmol/L Potassium (3.5-5.1) mmol/L Chloride (98-107) mmol/L Carbon Dioxide (22-30) mmol/L Anion Gap (5-15) MEQ/L BUN (7-17) mg/dL Creatinine (0.52-1.04) mg/dL Estimated GFR ML/MIN Glucose (74-106) mg/dL Calcium (8.4-10.2) mg/dL Total Bilirubin (0.2-1.3) mg/dL AST (14-36) U/L ALT (0-35) U/L Alkaline Phosphatase (38-126) U/L Serum Total Protein (6.3-8.2) g/dL Albumin (3.5-5.0) g/dL Amylase (30-110) U/L Lipase (23-300) U/L Serum , Qual (Negative) Urine Color (YELLOW) Urine Appearance (CLEAR) Urine pH (5-6) Ur Specific [place] (1.005-1.025) Urine Protein (Negative) Urine Ketones (NEGATIVE) Urine Blood (0-5) Keyur/ul Urine Nitrite (NEGATIVE) Urine Bilirubin (NEGATIVE) Urine Urobilinogen (0-1) mg/dL Ur Leukocyte Esterase (NEGATIVE) Urine WBC (Auto) (0-5) /HPF Urine RBC (Auto) (0-2) /HPF U Hyaline Cast (Auto) (0-2) /LPF U Epithel Cells (Auto) (FEW) /HPF Urine Bacteria (Auto) (NEGATIVE) /HPF Urine Mucus (Auto) (NEGATIVE) /HPF Urine Culture Reflexed (NO) Urine Glucose (NEGATIVE) mg/dL - Progress Progress: improved Progress Note: 12/20/18 05:00 38-year-old white female with history of seizures, CHF during , fibromyalgia, anxiety, bipolar depression who apparently had a colloid cyst removed from her brain in the past. Arrives with complaint of vomiting for 3 days she states that she had eaten a bad egg. On arrival patient with the temperature of 97 8 pulse 128 respiration 20 blood pressure 139/94 patient was 100% oxygen saturation patient's with chemistry which were remarkable for sodium 139 potassium 3.1 chloride 102 bicarbonate 18 BUN 15 creatinine 1.04 glucose 173 Patient's CBC white blood cell 13.4 hemoglobin 14.6 hematocrit 43.5 platelets 277 amylase and lipase were normal hCG was negative urinalysis specific gravity 1.027 pH 5.0 there is 100 protein 50-100 red cells, white cells Patient was given Zofran 4 mg IV 2 she was given 2 L of normal saline she was given 40 mEq of potassium chloride secondary to a potassium of 3.1. patient was improved with still mildly tachycardic with a heart rate of around 107-110. I had put out a call for Dr. Morris on for of possible placement on observation continued IV fluids and anti-emetics. However the patient states she does not want to be placed on observation and wants to go home. Will go ahead and place patient on clear liquids write for Zofran. She is to follow-up with Dr. Morris she states she will call him in his office. I had offered to contact Dr. Morris and had actually put in a call for him for possible admission. - Departure Time of Disposition: 05:03 Departure Disposition: Home Clinical Impression: Dehydration, Gastroenteritis, rule out food poisoning Vomiting Qualifiers: Vomiting type: unspecified Vomiting Intractability: non-intractable Nausea presence: with nausea Qualified Code(s): R11.2 - Nausea with vomiting, unspecified Condition: Fair Critical Care Time: No Referrals: MORELIA MORRIS MD [Primary Care Provider] - Instructions: Vomiting -- Adult Additional Instructions: Return home. Plenty of fluids clear fluids only 24-48 hours if nausea vomiting or abdominal pain. Follow-up with Dr. Morris. Zofran as prescribed. Return for acute distress or for severe symptoms. Prescriptions: Ondansetron ODT 4 MG [Zofran Odt 4 mg] 4 mg PO Q6H PRN PRN #10 tab.rapdis PRN Reason: Vomiting
[2018-12-20] MEDS ORDERED: Klor Con 10 MEQ PO ONE (02:51)
[2018-12-20 04:17] LABS: ALBUMIN 5.4 g/dL (3.5-5.0); ALKALINE PHOSPHATASE 66 U/L (38-126); AMYLASE 69 U/L (30-110); BLOOD UREA NITROGEN 15 mg/dL (7-17); CHLORIDE 102 mmol/L (98-107); Calcium 9.8 mg/dL (8.4-10.2); Carbon Dioxide 18 mmol/L (22-30); Creatinine 1 1.04 mg/dL (0.52-1.04); Glucose 173 mg/dL (74-106); LIPASE 27 U/L (23-300); Potassium 3.1 mmol/L (3.5-5.1); SGOT/AST 20 U/L (14-36); SGPT/ALT 19 U/L (0-35); SODIUM 139 mmol/L (137-145)
[2018-12-20 04:18] LABS: ANION GAP 22.1 MEQ/L (5-15)
[2018-12-20 04:27] LABS: BASOPHIL % 0.1 % (0.0-0.4); Basophil (Absolute #) 0.01 (0-0.4); Eosinophil % 0.1 % (0.00-5.0); Eosinophil (Absolute #) 0.02 (0-0.5); Granulocyte Absolute (ANC) 10.92 (1.4-6.9); Granulocytes % 81.3 % (36.0-66.0); Hematocrit 43.5 % (35-47); Hemoglobin 14.6 gm/dl (12.0-16.0); Lymphocyte (Absolute #) 1.44 (1.0-4.6); Lymphocytes % 10.7 % (24.0-44.0); Mean Cell Volume 92.2 fl (78-100); Mean Corpuscular Hemoglobin 30.9 pg (26-32); Mean Corpuscular Hgb Concent. 33.6 g/dl (32-36); Mean Platelet Volume 10.5 fl (6-9.5); Monocyte (Absolute #) 1.05 (0.0-1.3); Monocytes % 7.8 % (0.0-12.0); Platelet Count 277 K/mm3 (150-450); Red Blood Count 4.72 M/mm3 (4.1-5.4); Red Cell Distribution Width 13.3 % (11.5-14.0); White Blood Count 13.4 K/mm3 (4.0-10.5)
[2018-12-20 04:31] LABS: Appearance SLIGHTLY CLOUDY (CLEAR); Bilirubin NEGATIVE (NEGATIVE); Blood LARGE Ery/ul (0-5); Epithelial Cells RARE /HPF (FEW); Glucose NEGATIVE (NEGATIVE); Ketones SMALL (NEGATIVE); Leukocyte Esterase NEGATIVE (NEGATIVE); Mucus SLIGHT /HPF (NEGATIVE); Nitrite NEGATIVE (NEGATIVE); Protein,Urine Dip 100 (Negative); RBC 51-100 /HPF (0-2); Specific Gravity 1.027 (1.005-1.025); Urobilinogen NORMAL mg/dL (0-1); WBC 0-2 /HPF (0-5)
[2018-12-20 05:18] VITALS: BP 120/77; PULSE 110
== END 2018-12-20 05:16 | disposition home or self-care (01) ==
LOC: ED 01:12
DX: E86.0 Dehydration (principal); K52.9 Noninfective gastroenteritis and colitis, unspecified; R11.2 Nausea with vomiting, unspecified; F41.9 Anxiety disorder, unspecified; F31.9 Bipolar disorder, unspecified; I50.9 Heart failure, unspecified; M79.7 Fibromyalgia
CPT/HCPCS: 36000; 36415; 80053; 81001; 81025; 82150; 83690; 85025; 87086; 96360; 96361; 96374; 99284; J2405; A9270-GY

== ENCOUNTER 2019-06-15 10:27 | Emergency (ER) | payer OTHER ==
[2019-06-15] MEDS ORDERED: Augmentin 875-125 Tablet ONE (10:48)
[2019-06-15] MEDS ORDERED: MOTRIN 400 MG ONE (10:48)
--- NOTE | 2019-06-15 10:51 | ERPHSYRPT ---
- History of Present Illness Time Seen by Provider: 06/15/19 10:47 Source: patient Physician History: pt bit last night on the right hand by her dog by accident, family dog is utd, pt is allergic to tetnus vaccine, pt is right handed, indolent appearing puncture of the dorsum of right hand, no bleeding, no other injury, mild positional ache pain Allergies/Adverse Reactions: bupropion HCl [From Wellbutrin] Allergy (Verified 12/20/18 01:16) Rash diphtheria, pertussis, tetanus vacc Allergy (Verified 06/15/19 10:56) paroxetine [From Paxil] Allergy (Verified 06/15/19 10:56) Tetanus Vaccines and Toxoid Allergy (Verified 12/20/18 01:16) Hx Tetanus, Diphtheria Vaccination/Date Given: No Hx Influenza Vaccination/Date Given: No Hx Pneumococcal Vaccination/Date Given: No - Review of Systems Constitutional: No Fever Respiratory: No Dyspnea Abdominal/Gastrointestinal: No Nausea Neurological: No Symptoms - Past Medical History Pertinent Past Medical History: Yes Neurological History: Seizures ENT History: No Pertinent History Cardiac History: High Cholesterol, Hypertension Respiratory History: Asthma Endocrine Medical History: No Pertinent History Musculoskeletal History: Arthritis GI Medical History: No Pertinent History History: No Pertinent History Psycho-Social History: Anxiety, Bipolar, Depression Female Reproductive Disorders: No Pertinent History Other Medical History: PREECLAMPSIA. 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 - Past Surgical History Past Surgical History: Yes Neuro Surgical History: Other Cardiac: No Pertinent History Respiratory: No Pertinent History Gastrointestinal: No Pertinent History Genitourinary: No Pertinent History Musculoskeletal: No Pertinent History Female Surgical History: Section, Tubal Ligation Other Surgical History: cyst removed from brain as stated per pt - Social History Smoking Status: Never smoker Exposure to second hand smoke: Yes Alcohol Use: Socially Drug Use: none Patient Lives Alone: No Significant Family History: no pertinent family hx - Female History Hx Now: No - Nursing Vital Signs Nursing Vital Signs: Initial Vital Signs Temperature 98.6 F 06/15/19 10:34 Pulse Rate 96 H 06/15/19 10:34 Respiratory Rate 16 06/15/19 10:34 Blood Pressure 123/68 06/15/19 10:34 O2 Sat by Pulse Oximetry 96 06/15/19 10:34 Pain Scale Pain Intensity 7 - Physical Exam General Appearance: no apparent distress Eye Exam: eyes nml inspection Neck Exam: normal inspection Respiratory Exam: No respiratory distress Extremity Exam: other (tender dorsum of the right hand, no exit wound, dariusz, nontender wrist, sen and pulses intact) Neurologic Exam: alert, oriented x 3 Skin Exam: warm, dry - Course Nursing assessment & vital signs reviewed: Yes - Radiology Exams Hand X-ray Interpretation: Interpreted by me, No Fracture, Other (no fb) Ordered Tests: Active Orders 24 hr Category Date Time Status Dressing Care ROUTINE Care 06/15/19 10:44 Active HAND (MINIMUM 3 VIEWS) Stat Exams 06/15/19 10:58 Taken Medication Summary Discontinued Medications Generic Name Dose Route Start Last Admin Trade Name Freq PRN Reason Stop Dose Admin Amoxicillin/Clavulanate Potassium 875 mg 06/15/19 10:43 06/15/19 10:53 Augmentin 875-125 Tablet PO 06/15/19 10:44 875 mg STAT ONE Administration Amoxicillin/Clavulanate Potassium Confirm 06/15/19 10:48 Augmentin 875-125 Tablet Administered 06/15/19 10:49 Dose 875 mg .ROUTE .STK-MED ONE Ibuprofen 400 mg 06/15/19 10:43 06/15/19 10:54 Motrin 400 Mg PO 06/15/19 10:44 400 mg STAT ONE Administration Ibuprofen Confirm 06/15/19 10:48 Motrin 400 Mg Administered 06/15/19 10:49 Dose 400 mg .ROUTE .STK-MED ONE - Progress Progress Note: 06/15/19 11:01 see your doctor, return if worse, motrin, augmentin - Departure Departure Disposition: Home Clinical Impression: Dog bite Qualifiers: Encounter type: initial encounter Qualified Code(s): W54.0XXA - Bitten by dog, initial encounter Condition: Stable Critical Care Time: No Referrals: MORELIA MORRIS MD [Primary Care Provider] - Instructions: Wound Care (DC) Prescriptions: Amox Tr/Potass Clav. 875 mg [Augmentin 875-125 Tablet] 875 mg PO BID 10 Days #20 tablet
[2019-06-15] MEDS: Augmentin 875-125 Tablet PO ONE (10:53)
[2019-06-15] MEDS: MOTRIN 400 MG PO ONE (10:54)
[2019-06-15 10:55] VITALS: O2SAT 96
[2019-06-15] MEDS ORDERED: BACIGUENT PACKET ONE (11:03)
[2019-06-15 11:12] VITALS: BP 108/76; PULSE 84
[2019-06-15] MEDS: BACIGUENT PACKET TP ONE (11:17)
--- NOTE | 2019-06-15 20:41 | XRAY ---
Indication: Dog bite. Comparison: None 3 views of the right hand obtained. No bony, articular, or soft tissue abnormalities.
== END 2019-06-15 11:21 | disposition home or self-care (01) ==
LOC: ED 10:27
DX: S61.431A Puncture wound without foreign body of right hand, initial encounter (principal); W54.0XXA Bitten by dog, initial encounter
CPT/HCPCS: 73130; 99284; A9270-GY

== ENCOUNTER 2019-12-12 15:47 | Emergency (ER) | payer OTHER ==
[2019-12-12] MEDS ORDERED: Sodium Chloride 0.9% 1000 ML 1,000 ML IV STA (16:27)
[2019-12-12] MEDS ORDERED: MOTRIN 600 MG PO STA (16:27)
[2019-12-12] MEDS ORDERED: TYLENOL 325 MG PO STA (16:27)
[2019-12-12] MEDS ORDERED: MOTRIN 600 MG ONE (17:06)
[2019-12-12] MEDS ORDERED: TYLENOL 325 MG ONE (17:06)
[2019-12-12] MEDS ORDERED: Sodium Chloride 0.9% 1000 ML 1,000 ML ONE (17:07)
[2019-12-12 18:20] LABS: Appearance CLOUDY (CLEAR); Bilirubin NEGATIVE (NEGATIVE); Blood SMALL Ery/ul (0-5); Epithelial Cells RARE /HPF (FEW); Glucose NEGATIVE (NEGATIVE); Ketones SMALL (NEGATIVE); Leukocyte Esterase NEGATIVE (NEGATIVE); Mucus SLIGHT /HPF (NEGATIVE); Nitrite NEGATIVE (NEGATIVE); Protein,Urine Dip 100 (Negative); RBC 0-2 /HPF (0-2); Specific Gravity 1.019 (1.005-1.025); Urobilinogen 4 mg/dL (0-1)
--- NOTE | 2019-12-12 19:30 | ERPHSYRPT ---
- History of Present Illness Time Seen by Provider: 12/12/19 16:20 Source: patient Exam Limitations: no limitations Patient Subjective Stated Complaint: Pt states "I tested positive for influenza B on monday and I am not getting any better. My back hurts and I am coughing and I cannot eat, I feel horrible." Triage Nursing Assessment: Pt presented alert and oriented X 3, skin pwd Pt ambulates with an upright steady gait, able to speak in clear full sentecnes pt congested, no apparent respiratory distress. Physician History: Patient is a 39-year-old female presents to our ED with complaints of fever cough and back pain. Patient was diagnosed with influenza B 5 days ago symptoms have been constant. No nausea or vomiting. No diarrhea. No rash. No trauma. Patient admits to decreased p.o. 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 Associated Symptoms: No abdominal pain, No chest pain, No headache, No nausea/ vomiting, No shortness of breath, No stiff neck, No syncope, No weakness International travel in last 2 weeks: No Allergies/Adverse Reactions: bupropion HCl [From Wellbutrin] Allergy (Verified 12/20/18 01:16) Rash diphtheria, pertussis, tetanus vacc Allergy (Verified 06/15/19 10:56) paroxetine [From Paxil] Allergy (Verified 06/15/19 10:56) Tetanus Vaccines and Toxoid Allergy (Verified 12/20/18 01:16) Home Medications: Clonazepam 0.5 mg [Klonopin 0.5 MG] 0.5 mg PO TID 06/15/19 [History] Desvenlafaxine Succinate [Pristiq ER] 50 mg PO DAILY 06/15/19 [History] Gemfibrozil [Lopid] 800 mg PO HS 06/15/19 [History] Lisinopril 5 mg [Zestril 5 MG] 5 mg PO DAILY 06/15/19 [History] Pantoprazole 20 mg [Protonix 20MG Tablet] 20 mg PO DAILY 06/15/19 [History ] Pregabalin [Lyrica 100Mg] 100 mg PO BID 06/15/19 [History] Primidone 50 MG [Mysoline 50Mg] 50 mg PO BID 06/15/19 [History] Propranolol HCl 20 mg [Inderal 20 MG] 20 mg PO BID 06/15/19 [History] Propranolol HCl [Propranolol HCl ER] 160 mg PO DAILY 06/15/19 [History] Quetiapine Fumarate [Seroquel] 100 mg PO DAILY 06/15/19 [History] Quetiapine Fumarate [Seroquel] 600 mg PO HS 06/15/19 [History] Zonisamide [Zonegran] 100 mg PO UD 06/15/19 [History] Hx Tetanus, Diphtheria Vaccination/Date Given: No Hx Influenza Vaccination/Date Given: No Hx Pneumococcal Vaccination/Date Given: No Immunizations Up to Date: Yes - Review of Systems Constitutional: No Fever, No Chills Eyes: No Symptoms Ears, Nose, & Throat: No Symptoms Respiratory: No Cough, No Dyspnea Cardiac: No Chest Pain, No Edema, No Syncope Abdominal/Gastrointestinal: No Abdominal Pain, No Nausea, No Vomiting, No Diarrhea Genitourinary Symptoms: Other (Mild CVA tenderness bilaterally), No Dysuria Musculoskeletal: No Back Pain, No Neck Pain Skin: No Symptoms, No Rash Neurological: No Symptoms, No Dizziness, No Focal Weakness, No Sensory Changes Psychological: No Symptoms Endocrine: No Symptoms Hematologic/Lymphatic: No Symptoms Immunological/Allergic: No Symptoms All Other Systems: Reviewed and Negative - Past Medical History Pertinent Past Medical History: Yes Neurological History: Seizures ENT History: No Pertinent History Cardiac History: High Cholesterol, Hypertension Respiratory History: Asthma Endocrine Medical History: No Pertinent History Musculoskeletal History: Arthritis GI Medical History: No Pertinent History History: No Pertinent History Psycho-Social History: Anxiety, Bipolar, Depression Female Reproductive Disorders: No Pertinent History Other Medical History: PREECLAMPSIA. 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 - Past Surgical History Past Surgical History: Yes Neuro Surgical History: Other Cardiac: No Pertinent History Respiratory: No Pertinent History Gastrointestinal: No Pertinent History Genitourinary: No Pertinent History Musculoskeletal: No Pertinent History Female Surgical History: Section, Tubal Ligation Other Surgical History: cyst removed from brain as stated per pt - Social History Smoking Status: Current every day smoker How long have you smoked: years Exposure to second hand smoke: Yes Alcohol Use: Socially Drug Use: none Patient Lives Alone: No Significant Family History: no pertinent family hx - Female History Hx Last Menstrual Period: 12/09/2019 Hx Now: No - Nursing Vital Signs Nursing Vital Signs: Initial Vital Signs Temperature 100.2 F 12/12/19 16:03 Pulse Rate 130 H 12/12/19 16:03 Respiratory Rate 24 12/12/19 16:03 Blood Pressure 116/87 12/12/19 16:03 O2 Sat by Pulse Oximetry 100 12/12/19 16:03 Pain Scale Pain Intensity 2 - Physical Exam General Appearance: no apparent distress, alert Eye Exam: PERRL/EOMI ENT Exam: normal ENT inspection, No pharyngeal erythema, No tonsillar exudate Neck Exam: normal inspection, supple, full range of motion, No stiff neck, No Brudzinski's sign, No Kernig's sign, No meningismus Respiratory Exam: normal breath sounds, lungs clear, no respiratory distress Cardiovascular/Chest Exam: normal heart sounds, regular rate/rhythm, No murmur, No edema Gastrointestinal/Abdominal Exam: soft, non tender, no distention Pelvic Exam: not done Rectal Exam: deferred Extremity Exam: non-tender, normal range of motion, normal inspection, normal capillary refill Neurologic Exam: alert, oriented x 3, 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, 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, normal mood/affect, sensation nml, No motor deficits Skin Exam: normal color, warm, dry, No rash SpO2 Interpretation: normal SpO2: 99 O2 Delivery: Room Air - Radiology Exams Chest X-ray Interpretation: Reviewed by me, Negative, No Pneumonia, No Infiltrates Ordered Tests: Active Orders 24 hr Category Date Time Status IV Insertion STAT Care 12/12/19 16:27 Active CHEST 1 VIEW (PORTABLE) Stat Exams 12/12/19 16:27 Taken CULTURE,URINE Stat Lab 12/12/19 17:20 Received UA W/RFX UR CULTURE Stat Lab 12/12/19 17:20 Completed Medication Summary Discontinued Medications Generic Name Dose Route Start Last Admin Trade Name Martha PRN Reason Stop Dose Admin Acetaminophen 975 mg 12/12/19 16:27 12/12/19 17:10 Tylenol 325 Mg PO 12/12/19 16:28 975 mg STAT STA Administration Acetaminophen Confirm 12/12/19 17:06 Tylenol 325 Mg Administered 12/12/19 17:07 Dose 975 mg .ROUTE .STK-MED ONE Sodium Chloride 1,000 mls @ 999 mls/hr 12/12/19 16:27 12/12/19 18:16 Sodium Chloride 0.9% 1000 Ml IV 12/12/19 17:27 Infused .Q1H1M STA Infusion Sodium Chloride Confirm 12/12/19 17:07 Sodium Chloride 0.9% 1000 Ml Administered 12/12/19 17:08 Dose 1,000 mls @ ud .ROUTE .STK-MED ONE Ibuprofen 600 mg 12/12/19 16:27 12/12/19 17:09 Motrin 600 Mg PO 12/12/19 16:28 600 mg STAT STA Administration Ibuprofen Confirm 12/12/19 17:06 Motrin 600 Mg Administered 12/12/19 17:07 Dose 600 mg .ROUTE .STK-MED ONE Lab/Rad Data: Laboratory Results 12/12/19 Range/Units 17:20 Urine Color PRIYA (YELLOW) Urine Appearance CLOUDY (CLEAR) Urine pH 5.0 (5-6) Ur Specific [place] 1.019 (1.005-1.025) Urine Protein 100 (Negative) Urine Ketones SMALL (NEGATIVE) Urine Blood SMALL (0-5) Keyur/ul Urine Nitrite NEGATIVE (NEGATIVE) Urine Bilirubin NEGATIVE (NEGATIVE) Urine Urobilinogen 4 (0-1) mg/dL Ur Leukocyte Esterase NEGATIVE (NEGATIVE) Urine WBC (Auto) 6-10 (0-5) /HPF Urine RBC (Auto) 0-2 (0-2) /HPF U Hyaline Cast (Auto) 6-10 (0-2) /LPF U Epithel Cells (Auto) RARE (FEW) /HPF Urine Bacteria (Auto) NONE (NEGATIVE) /HPF Urine Mucus (Auto) SLIGHT (NEGATIVE) /HPF Urine Culture Reflexed YES (NO) Urine Glucose NEGATIVE (NEGATIVE) mg/dL - Progress Progress: improved Progress Note: 12/12/19 19:53 Patient reassessed. Tachycardia resolved. UA significant for UTI. IV fluids administered. Patient feels much better. Patient requesting discharge. We called in a prescription for Keflex to address the UTI. Patient voices no other complaints at this time. Counseled pt/family regarding: lab results, diagnosis, need for follow-up, rad results - Departure Departure Disposition: Home Clinical Impression: UTI (urinary tract infection), Influenza, Dehydration Condition: Stable Critical Care Time: No Referrals: MORELIA MORRIS MD [Primary Care Provider] - Instructions: Dehydration, Adult (DC), Urinary Tract Infection, Adult (DC) Additional Instructions: Please follow-up with your family doctor within 48 hours for reevaluation. Discharge/Care Plan LASHAE LYLES was seen on 12/12/19 in the Emergency Room. The patient was counseled regarding Diagnosis,Lab results, Imaging studies, need for follow up and when to return to the Emergency Room. Prescriptions given: Discharge Note I have spoken with the patient and/or caregivers. I have explained the patient' s condition, diagnosis and treatment plan based on the information available to me at this time. I have answered the patient's and/or caregiver's questions and addressed any concerns. The patient and/or caregivers have as good understanding of the patient's diagnosis, condition and treatment plan as can be expected at this point. The vital signs have been stable. The patient's condition is stable and appropriate for discharge from the emergency department. The patient will pursue further outpatient evaluation with the primary care physician or other designated or consulting physician as outlined in the discharge instructions. The patient and/or caregivers are agreeable to this plan of care and follow-up instructions have been explained in detail. The patient and/or caregivers have received these instruction. The patient/and or caregivers are aware that any significant change in condition or worsening of symptoms should prompt an immediate return to this or the closest emergency department or call 911. Prescriptions: Cephalexin Mh 500 mg [Keflex 500 mg] 500 mg PO BID 7 Days #14 capsule
[2019-12-12 20:01] VITALS: BP 124/78; PULSE 95; O2SAT 97
--- NOTE | 2019-12-13 08:34 | XRAY ---
Indication: Ammonia. Comparison: August 03, 2015. Portable chest remains clear. Heart is not enlarged. Bony thorax intact. No new/acute findings. Impression: Stable nonacute chest.
== END 2019-12-12 20:01 | disposition home or self-care (01) ==
LOC: ED 15:47
DX: N39.0 Urinary tract infection, site not specified (principal); J11.1 Influenza due to unidentified influenza virus with other respiratory manifestations; E86.0 Dehydration
CPT/HCPCS: 36000; 71045; 81001; 87077; 87086; 87186; 96360; 99284; A9270-GY

== ENCOUNTER 2020-08-31 07:44 | Emergency (ER) | payer OTHER ==
--- NOTE | 2020-08-31 08:03 | ERPHSYRPT ---
- History of Present Illness Time Seen by Provider: 08/31/20 08:02 Source: patient Exam Limitations: no limitations Physician History: This is a 39-year-old white female who began with a headache yesterday. It has persisted but lessened today. She ended up missing work because of her severe headache. Her headache has responded to [id number] medication. Patient requires a medical screening exam and note for work. Patient desires to return to work. However, she could not get a note from the walk-in clinic or from her primary care doctor in time for her to get to work today. She has no other specific complaints. Timing/Duration: yesterday Head Pain Location: global Severity of Pain-Max: moderate Severity of Pain-Current: mild Recent Head Trauma: no recent headache/trauma, occasional headaches Associated Symptoms: denies symptoms Previous symptoms: no prior history Allergies/Adverse Reactions: bupropion HCl [From Wellbutrin] Allergy (Verified 12/20/18 01:16) Rash diphtheria, pertussis, tetanus vacc Allergy (Verified 06/15/19 10:56) paroxetine [From Paxil] Allergy (Verified 06/15/19 10:56) Tetanus Vaccines and Toxoid Allergy (Verified 12/20/18 01:16) Home Medications: Clonazepam 0.5 mg [Klonopin 0.5 MG] 0.5 mg PO TID 06/15/19 [History] Desvenlafaxine Succinate [Pristiq ER] 50 mg PO DAILY 06/15/19 [History] Gemfibrozil [Lopid] 800 mg PO HS 06/15/19 [History] Lisinopril 5 mg [Zestril 5 MG] 5 mg PO DAILY 06/15/19 [History] Pantoprazole 20 mg [Protonix 20MG Tablet] 20 mg PO DAILY 06/15/19 [History] Pregabalin [Lyrica 100Mg] 100 mg PO BID 06/15/19 [History] Primidone 50 MG [Mysoline 50Mg] 50 mg PO BID 06/15/19 [History] Propranolol HCl 20 mg [Inderal 20 MG] 20 mg PO BID 06/15/19 [History] Propranolol HCl [Propranolol HCl ER] 160 mg PO DAILY 06/15/19 [History] Quetiapine Fumarate [Seroquel] 100 mg PO DAILY 06/15/19 [History] Quetiapine Fumarate [Seroquel] 600 mg PO HS 06/15/19 [History] Zonisamide [Zonegran] 100 mg PO UD 06/15/19 [History] Hx Tetanus, Diphtheria Vaccination/Date Given: No Hx Influenza Vaccination/Date Given: No Hx Pneumococcal Vaccination/Date Given: No Travel Risk - International Travel Have you traveled outside of the country in past 3 weeks: No - Coronavirus Screening Are you exhibiting any of the following symptoms?: No Close contact with a COVID-19 positive Pt in past 14-21 Days: No - Review of Systems Constitutional: No Symptoms Eyes: No Symptoms Ears, Nose, & Throat: No Symptoms Respiratory: No Symptoms Cardiac: No Symptoms Abdominal/Gastrointestinal: No Symptoms Genitourinary Symptoms: No Symptoms Musculoskeletal: No Symptoms Skin: No Symptoms Neurological: Headache Psychological: No Symptoms Endocrine: No Symptoms Hematologic/Lymphatic: No Symptoms Immunological/Allergic: No Symptoms All Other Systems: Reviewed and Negative - Past Medical History Pertinent Past Medical History: Yes Neurological History: Seizures ENT History: No Pertinent History Cardiac History: High Cholesterol, Hypertension Respiratory History: Asthma Endocrine Medical History: No Pertinent History Musculoskeletal History: Arthritis GI Medical History: No Pertinent History History: No Pertinent History Psycho-Social History: Anxiety, Bipolar, Depression Female Reproductive Disorders: No Pertinent History Other Medical History: PREECLAMPSIA. 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 - Past Surgical History Past Surgical History: Yes Neuro Surgical History: Other Cardiac: No Pertinent History Respiratory: No Pertinent History Gastrointestinal: No Pertinent History Genitourinary: No Pertinent History Musculoskeletal: No Pertinent History Female Surgical History: Section, Tubal Ligation Other Surgical History: cyst removed from brain as stated per pt - Social History Smoking Status: Current every day smoker How long have you smoked: years Exposure to second hand smoke: Yes Alcohol Use: Socially Drug Use: none Patient Lives Alone: No Significant Family History: no pertinent family hx - Nursing Vital Signs Nursing Vital Signs: Initial Vital Signs Temperature 98.3 F 08/31/20 07:59 Pulse Rate 106 H 08/31/20 07:59 Respiratory Rate 18 08/31/20 07:59 Blood Pressure 105/85 08/31/20 07:59 O2 Sat by Pulse Oximetry 100 08/31/20 07:59 Pain Scale Pain Intensity 0 - Physical Exam General Appearance: no apparent distress, alert Eye Exam: PERRL/EOMI, eyes nml inspection Ears, Nose, Throat Exam: normal ENT inspection, moist mucous membranes Neck Exam: normal inspection, non-tender, supple, full range of motion Respiratory Exam: normal breath sounds, lungs clear, airway intact, No chest tenderness, No respiratory distress Cardiovascular Exam: regular rate/rhythm, normal heart sounds, normal peripheral pulses Gastrointestinal/Abdominal Exam: soft, normal bowel sounds, No tenderness Back Exam: normal inspection, normal range of motion, No CVA tenderness, No vertebral tenderness Extremity Exam: normal inspection, normal range of motion, pelvis stable Mental Status Exam: alert, 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 3, 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 Exam: normal hearing, normal speech, PERRL Coordination/Gait Exam: normal finger to nose, normal gait, normal cerebellar function Motor/Sensory Exam: no motor deficit, no sensory deficit, no pronator drift Skin Exam: normal color, warm, dry Lymphatic Exam: No adenopathy SpO2 Interpretation: normal O2 Delivery: Room Air - Course Nursing assessment & vital signs reviewed: Yes - Departure Departure Disposition: Home Clinical Impression: Mild headache, Encounter for medical screening examination Condition: Stable Critical Care Time: No Referrals: MORELIA MORRIS MD [Primary Care Provider] - Additional Instructions: Tylenol and ibuprofen for headache. Follow-up with your primary care physician for further management. Forms: Work/School Release Form
[2020-08-31 08:06] VITALS: BP 105/85; PULSE 106; O2SAT 100
== END 2020-08-31 08:44 | disposition home or self-care (01) ==
LOC: ED 07:44
DX: R51.9 Headache, unspecified (principal); Z13.9 Encounter for screening, unspecified
CPT/HCPCS: 99283

== ENCOUNTER 2020-10-02 08:38 | Emergency (ER) | payer OTHER ==
[2020-10-02] MEDS ORDERED: Sodium Chloride 0.9% 1000 ML 1,000 ML IV STA (08:47)
[2020-10-02] MEDS ORDERED: BABY ASPIRIN 81 MG CHEW PO ONE (08:47)
[2020-10-02] MEDS ORDERED: ATARAX 25 MG PO ONE (08:49)
[2020-10-02] MEDS ORDERED: ATARAX 25 MG ONE (08:53)
[2020-10-02] MEDS ORDERED: BABY ASPIRIN 81 MG CHEW ONE (08:53)
[2020-10-02] MEDS ORDERED: Sodium Chloride 0.9% 1000 ML 1,000 ML ONE (08:53)
--- NOTE | 2020-10-02 08:58 | ERPHSYRPT ---
- History of Present Illness Time Seen by Provider: 10/02/20 08:39 Source: patient Exam Limitations: no limitations Patient Subjective Stated Complaint: Pt states "I broke up a dog fight between my dogs this morning and I am out of my clonopin and cannot get it filled until tomorrow." Triage Nursing Assessment: Pt presented alert and oriented X 3, skin pwd. Pt ambulates with an upright steady gait, able to speak in clear full sentences pt in no apparent respiratory distress. Pt speaking rapidly. Physician History: Patient is here with some chest pain, shortness of breath. Patient states it may be an anxiety attack. She states that she is on "lots of psych medications". She states that she broke up a dog fight just prior to arrival. She arrives with palpitations. She states that she is out of her Klonopin since yesterday. She feels this is contributing to her tachycardia and nonspecific chest pain. Location: chest Quality: SOB and palpitations Radiation: None Severity: moderate Duration: this AM Timing: suddenly Modifying factors/associated signs and symptoms: broke up dog fight Allergies/Adverse Reactions: bupropion HCl [From Wellbutrin] Allergy (Verified 12/20/18 01:16) Rash diphtheria, pertussis, tetanus vacc Allergy (Verified 06/15/19 10:56) paroxetine [From Paxil] Allergy (Verified 06/15/19 10:56) Tetanus Vaccines and Toxoid Allergy (Verified 12/20/18 01:16) Home Medications: Clonazepam 0.5 mg [Klonopin 0.5 MG] 0.5 mg PO TID 06/15/19 [History] Desvenlafaxine Succinate [Pristiq ER] 50 mg PO DAILY 06/15/19 [History] Gemfibrozil [Lopid] 800 mg PO HS 06/15/19 [History] Lisinopril 5 mg [Zestril 5 MG] 5 mg PO DAILY 06/15/19 [History] Pantoprazole 20 mg [Protonix 20MG Tablet] 20 mg PO DAILY 06/15/19 [Hist ory] Pregabalin [Lyrica 100Mg] 100 mg PO BID 06/15/19 [History] Primidone 50 MG [Mysoline 50Mg] 50 mg PO BID 06/15/19 [History] Propranolol HCl 20 mg [Inderal 20 MG] 20 mg PO BID 06/15/19 [History] Propranolol HCl [Propranolol HCl ER] 160 mg PO DAILY 06/15/19 [History] Quetiapine Fumarate [Seroquel] 100 mg PO DAILY 06/15/19 [History] Quetiapine Fumarate [Seroquel] 600 mg PO HS 06/15/19 [History] Zonisamide [Zonegran] 100 mg PO UD 06/15/19 [History] Hx Tetanus, Diphtheria Vaccination/Date Given: No Hx Influenza Vaccination/Date Given: No Hx Pneumococcal Vaccination/Date Given: No Immunizations Up to Date: Yes Travel Risk - International Travel Have you traveled outside of the country in past 3 weeks: No - Coronavirus Screening Are you exhibiting any of the following symptoms?: No Close contact with a COVID-19 positive Pt in past 14-21 Days: No - Review of Systems Constitutional: No Fever, No Chills Eyes: No Symptoms Ears, Nose, & Throat: No Symptoms Respiratory: Dyspnea, No Cough Cardiac: Palpitations, No Chest Pain, No Edema, No Syncope Abdominal/Gastrointestinal: No Abdominal Pain, No Nausea, No Vomiting, No Diarrhea Genitourinary Symptoms: No Dysuria Musculoskeletal: No Back Pain, No Neck Pain Skin: No Rash Neurological: No Dizziness, No Focal Weakness, No Sensory Changes Psychological: No Symptoms Endocrine: No Symptoms All Other Systems: Reviewed and Negative - Past Medical History Pertinent Past Medical History: Yes Neurological History: Seizures ENT History: No Pertinent History Cardiac History: High Cholesterol, Hypertension Respiratory History: Asthma Endocrine Medical History: No Pertinent History Musculoskeletal History: Arthritis GI Medical History: No Pertinent History History: No Pertinent History Psycho-Social History: Anxiety, Bipolar, Depression Female Reproductive Disorders: No Pertinent History Other Medical History: PREECLAMPSIA. 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 - Past Surgical History Past Surgical History: Yes Neuro Surgical History: Other Cardiac: No Pertinent History Respiratory: No Pertinent History Gastrointestinal: No Pertinent History Genitourinary: No Pertinent History Musculoskeletal: No Pertinent History Female Surgical History: Section, Tubal Ligation Other Surgical History: cyst removed from brain as stated per pt - Social History Smoking Status: Current every day smoker How long have you smoked: years Exposure to second hand smoke: Yes Alcohol Use: Socially Drug Use: none Patient Lives Alone: No Significant Family History: no pertinent family hx - Female History Hx Last Menstrual Period: 10/01/2020 Hx Now: No - Nursing Vital Signs Nursing Vital Signs: Initial Vital Signs Temperature 99.4 F 10/02/20 08:41 Pulse Rate 128 H 10/02/20 08:41 Respiratory Rate 26 H 10/02/20 08:41 Blood Pressure 155/102 10/02/20 08:41 O2 Sat by Pulse Oximetry 99 10/02/20 08:41 Pain Scale Pain Intensity 0 - Physical Exam General Appearance: no apparent distress, alert Eye Exam: PERRL/EOMI, eyes nml inspection Ears, Nose, Throat Exam: normal ENT inspection, TMs normal, pharynx normal, moist mucous membranes Neck Exam: normal inspection, non-tender, supple, full range of motion Respiratory Exam: normal breath sounds, lungs clear, No respiratory distress Cardiovascular Exam: regular rate/rhythm, normal heart sounds, normal peripheral pulses, tachycardia Gastrointestinal/Abdomen Exam: soft, normal bowel sounds, No tenderness, No mass Back Exam: normal inspection, normal range of motion, No CVA tenderness, No vertebral tenderness Extremity Exam: normal inspection, normal range of motion, pelvis stable Neurologic Exam: alert, oriented x 3, cooperative, normal mood/affect, nml cere bellar function, nml station & gait, sensation nml, No motor deficits Skin Exam: normal color, warm, dry, No rash Lymphatic Exam: No adenopathy SpO2: 99 - Course Nursing assessment & vital signs reviewed: Yes EKG Interpreted by Me: Sinus Tach Ordered Tests: Active Orders 24 hr Category Date Time Status EKG-ER Only STAT Care 10/02/20 08:47 Active IV Insertion STAT Care 10/02/20 08:47 Active CHEST 2 VIEWS (PA AND LAT) Stat Exams 10/02/20 08:48 Completed CBC W DIFF Stat Lab 10/02/20 09:00 Completed CMP Stat Lab 10/02/20 09:00 Completed ETHYL ALCOHOL Stat Lab 10/02/20 09:00 Completed HCG,QUALITATIVE URINE Stat Lab 10/02/20 09:42 Ordered LIPASE Stat Lab 10/02/20 09:00 Completed NT PRO BNP Stat Lab 10/02/20 09:00 Completed TROPONIN Q3H Lab 10/02/20 09:00 Completed TROPONIN Q3H Lab 10/02/20 12:00 Ordered TROPONIN Q3H Lab 10/02/20 15:00 Ordered TROPONIN Q3H Lab 10/02/20 18:00 Ordered TROPONIN Q3H Lab 10/02/20 21:00 Ordered UA W/RFX UR CULTURE Stat Lab 10/02/20 09:42 Ordered Medication Summary Discontinued Medications Generic Name Dose Route Start Last Admin Trade Name Brennanq PRN Reason Stop Dose Admin Aspirin 324 mg 10/02/20 08:47 10/02/20 08:55 Baby Aspirin 81 Mg Chew PO 10/02/20 08:48 324 mg STAT ONE Administration Aspirin Confirm 10/02/20 08:53 Baby Aspirin 81 Mg Chew Administered 10/02/20 08:54 Dose 324 mg .ROUTE .STK-MED ONE Hydroxyzine HCl 50 mg 10/02/20 08:49 10/02/20 08:54 Atarax 25 Mg PO 10/02/20 08:50 50 mg STAT ONE Administration Hydroxyzine HCl Confirm 10/02/20 08:53 Atarax 25 Mg Administered 10/02/20 08:54 Dose 50 mg .ROUTE .STK-MED ONE Sodium Chloride 1,000 mls @ 999 mls/hr 10/02/20 08:47 10/02/20 09:59 Sodium Chloride 0.9% 1000 Ml IV 10/02/20 09:47 Infused .Q1H1M STA Infusion Sodium Chloride Confirm 10/02/20 08:53 Sodium Chloride 0.9% 1000 Ml Administered 10/02/20 08:54 Dose 1,000 mls @ ud .ROUTE .STK-MED ONE Lab/Rad Data: Laboratory Result Diagrams 10/02/20 09:00 10/02/20 09:00 Laboratory Results 10/02/20 10/02/20 10/02/20 Range/Units 09:00 09:00 09:00 WBC 5.7 (4.0-10.5) K/mm3 RBC 4.09 L (4.1-5.4) M/mm3 Hgb 11.9 L (12.0-16.0) gm/dl Hct 36.8 (35-47) % MCV 90.0 (78-100) fl MCH 29.1 (26-32) pg MCHC 32.3 (32-36) g/dl RDW 14.9 H (11.5-14.0) % Plt Count 330 (150-450) K/mm3 MPV 9.4 (7.5-11.0) fl Gran % 50.9 (36.0-66.0) % Eos # (Auto) 0.11 (0-0.5) Absolute Lymphs (auto) 1.99 (1.0-4.6) Absolute Monos (auto) 0.67 (0.0-1.3) Lymphocytes % 35.0 (24.0-44.0) % Monocytes % 11.8 (0.0-12.0) % Eosinophils % 1.9 (0.00-5.0) % Basophils % 0.4 (0.0-0.4) % Absolute Granulocytes 2.89 (1.4-6.9) Basophils # 0.02 (0-0.4) Sodium 135 L (137-145) mmol/L Potassium 3.4 L (3.5-5.1) mmol/L Chloride 106 (98-107) mmol/L Carbon Dioxide 17 L (22-30) mmol/L Anion Gap 15.2 H (5-15) MEQ/L BUN 7 (7-17) mg/dL Creatinine 0.79 (0.52-1.04) mg/dL Estimated GFR > 60.0 ML/MIN Glucose 111 H (74-106) mg/dL Calcium 9.1 (8.4-10.2) mg/dL Total Bilirubin 0.40 (0.2-1.3) mg/dL AST 21 (14-36) U/L ALT 8 (0-35) U/L Alkaline Phosphatase 60 (38-126) U/L Troponin I < 0.012 (0.000-0.034) ng/mL NT-Pro-B Natriuret Pep 48.7 (0-450) pg/mL Serum Total Protein 7.8 (6.3-8.2) g/dL Albumin 4.7 (3.5-5.0) g/dL Lipase 61 (23-300) U/L Ethyl Alcohol < 10 (0-10) mg/dL - Progress Progress: improved Progress Note: 10/02/20 08:58 Differential diagnosis includes STEMI infection pneumonia anxiety - We'll obtain basic labs, fluids, EKG, troponin, chest x-ray - I feel comfortable with one time negative troponin given symptoms have improved and started greater then 6 hours ago. - EKG shows no ST changes - my read. See full read below. - O2 saturations consistently greater than 95%. - CXR shows no pneumonia, pneumothorax - my read -Fluids, Atarax, aspirin 10/02/20 10:03 Labs and work-up largely unremarkable. Patient feeling improved with medication and fluids here. Overall, I do believe the patient is safe to be discharged home. I do believe this is most likely secondary to her being out of her Klonopin. Patient is unable to fill it until tomorrow because she has used all of it for the month. I did discuss this with the patient has a potential sign of medication misuse, or abuse. Tachycardia has completely resolved at this point in time. Plan of care was discussed with patient and all questions answered. The patient is agreeable to be discharged home and both verbal and printed discharge instructions were provided.The patient agreed to seek outpatient follow up as discussed. The patient was given strict instructions to return to the emergency department for worsening symptoms or any other emergent concerns. The patient verbalized understanding. 10/02/20 10:10 - Departure Departure Disposition: Home Clinical Impression: Shortness of breath Condition: Stable Critical Care Time: No Referrals: MORELIA MORRIS MD [Primary Care Provider] - Instructions: Anxiety, Adult (DC)
--- NOTE | 2020-10-02 09:27 | XRAY ---
Indication: Chest pain. Anxiety. Comparison: December 12, 2019. PA/lateral chest again demonstrates normal heart, lungs, and bony thorax.
[2020-10-02 09:28] LABS: Absolute Neutrophil Ct (ANC) 2.89 (1.4-6.9); BASOPHIL % 0.4 % (0.0-0.4); Basophil (Absolute #) 0.02 (0-0.4); Eosinophil % 1.9 % (0.00-5.0); Eosinophil (Absolute #) 0.11 (0-0.5); Hematocrit 36.8 % (35-47); Hemoglobin 11.9 gm/dl (12.0-16.0); Lymphocyte (Absolute #) 1.99 (1.0-4.6); Mean Corpuscular Hemoglobin 29.1 pg (26-32); Mean Corpuscular Hgb Concent. 32.3 g/dl (32-36); Mean Platelet Volume 9.4 fl (7.5-11.0); Monocyte (Absolute #) 0.67 (0.0-1.3); Monocytes % 11.8 % (0.0-12.0); Neutrophil % 50.9 % (36.0-66.0); Platelet Count 330 K/mm3 (150-450); Red Blood Count 4.09 M/mm3 (4.1-5.4); Red Cell Distribution Width 14.9 % (11.5-14.0); White Blood Count 5.7 K/mm3 (4.0-10.5)
[2020-10-02 09:55] LABS: ALBUMIN 4.7 g/dL (3.5-5.0); ALKALINE PHOSPHATASE 60 U/L (38-126); ANION GAP 15.2 MEQ/L (5-15); BLOOD UREA NITROGEN 7 mg/dL (7-17); CHLORIDE 106 mmol/L (98-107); Calcium 9.1 mg/dL (8.4-10.2); Carbon Dioxide 17 mmol/L (22-30); Creatinine 1 0.79 mg/dL (0.52-1.04); EST GLOMERULAR FILTRATION RATE > 60.0 ML/MIN; Glucose 111 mg/dL (74-106); LIPASE 61 U/L (23-300); NT PRO BNP 48.7 pg/mL (0-450); Potassium 3.4 mmol/L (3.5-5.1); SGOT/AST 21 U/L (14-36); SGPT/ALT 8 U/L (0-35); SODIUM 135 mmol/L (137-145); Total Protein 7.8 g/dL (6.3-8.2)
[2020-10-02 09:56] LABS: ETHYL ALCOHOL < 10 mg/dL (0-10)
[2020-10-02 10:18] VITALS: BP 128/90; PULSE 110; O2SAT 100
== END 2020-10-02 10:32 | disposition home or self-care (01) ==
LOC: ED 08:38
DX: R06.02 Shortness of breath (principal); R07.9 Chest pain, unspecified; R00.2 Palpitations
CPT/HCPCS: 36415; 71046; 80053; 83690; 83880; 84484; 85025; 93005; 96360; 99284; G0480; 80307; A9270-GY

== ENCOUNTER 2021-01-05 05:55 | Day surgery (SDC) | payer OTHER ==
[2021-01-05] MEDS ORDERED: KEFZOL 1 GM/50 ML PREMIX** 1 GM/50 ML IVPB IV SCH (06:15)
[2021-01-05] MEDS ORDERED: Lactated Ringers 1,000 ML IV SCH (06:30)
[2021-01-05] MEDS ORDERED: Xylocaine-Mpf 2% 5 Ml Vial ONE (07:57)
[2021-01-05] MEDS ORDERED: Versed 2 MG/2 ML Injection ONE (07:57)
[2021-01-05] MEDS ORDERED: Decadron 4 MG INJ ONE (07:57)
[2021-01-05] MEDS ORDERED: Zofran 4 MG/2 ML VIAL ONE (07:57)
[2021-01-05] MEDS ORDERED: SUBLIMAZE 100 MCG/2 ML ONE ×2 (07:57→08:57)
[2021-01-05] MEDS ORDERED: DIPRIVAN 200 MG/20 ML IV ONE (07:57)
[2021-01-05] MEDS ORDERED: Astramorph-Pf 5 MG/10 ML ONE (08:44)
[2021-01-05] MEDS ORDERED: Lactated Ringers 1,000 ML IV ONE (08:59)
[2021-01-05] MEDS ORDERED: Ketamine HCl 50 MG/ML ONE ×2 (09:08→09:09)
[2021-01-05] MEDS ORDERED: Ephedrine Sulfate 50 MG/ML ONE (09:28)
[2021-01-05 10:10] VITALS: BP 117/79; PULSE 84; O2SAT 100
--- NOTE | 2021-01-06 09:02 | OP ---
SURGERY DATE/TIME: 01/05/2021 08 PREOPERATIVE DIAGNOSIS: Menorrhagia. POSTOPERATIVE DIAGNOSIS: Menorrhagia. PROCEDURE: Hysteroscopy, D&C with NovaSure ablation. SURGEON: Aden Slaughter D.O. RN DIABETES EDUCATOR: Jerardo Whiting assembler surgical garment. ANESTHESIA: General. ESTIMATED BLOOD LOSS: Minimal. COMPLICATIONS: None. INDICATIONS: The risks, benefits, indications and alternatives of the procedure were reviewed with the patient prior to the procedure. The patient understood the risk of infection, bleeding, bowel injury, bladder injury, ureteral injury, uterine perforation, pelvic infection and thrombophilic disorder associated with this surgery however desires to have this surgery as a possible means to alleviate her current medical condition. DESCRIPTION OF PROCEDURE AND FINDINGS: At this point the patient is taken to the operating room, given general sedation, placed in the dorsal lithotomy position. Prepped and draped in the usual sterile fashion. A weighted speculum is then placed in the patient's vagina and the anterior lip of the cervix was grasped with a single tooth tenaculum. Endocervical dilators were advanced through the endocervical canal as a means to dilate the cervix and the uterus is measured to approximately 6 to 7 cm. From this point a 5 mm hysteroscope was then placed in through the endocervical canal where visualization of the endometrial lining appeared to be within normal limits with no gross abnormalities. The hysteroscope was then removed and the curette was then placed within the fundus of the uterus and curettage was performed in all quadrants of the uterus retrieving a mild amount of tissue. From this point hemostasis is obtained. The NovaSure was then obtained and was placed through the endocervical canal where it reached the fundus and retracted approximately 1 cm and measurement was 5 cm. It was then engaged and with a width of 3.3 cm. The machine was turned on for an ablative time of 51 seconds. After completion of the ablation the NovaSure was disengaged and was removed from the uterine cavity without complication. From this point all subsequent instruments were removed from the patient's vaginal region. The patient was then taken out of the dorsal lithotomy position, was taken out of anesthesia and was then taken to the recovery room in stable condition. All instruments and laps were accounted for x2.
== END 2021-01-05 09:45 | disposition home or self-care (01) ==
LOC: SDC 05:55
PROVIDERS: ATTEND Obstetrics & Gynecology
DX: N92.0 Excessive and frequent menstruation with regular cycle (principal)
CPT/HCPCS: 84703; J0690; J1100; J2250; J2274; J2405; J2704; J3010

== ENCOUNTER 2021-03-24 09:04 | Emergency (ER) | payer OTHER ==
[2021-03-24] MEDS ORDERED: Sodium Chloride 0.9% 1000 ML 1,000 ML IV STA (09:25)
[2021-03-24 09:36] LABS: Absolute Neutrophil Ct (ANC) 5.14 (1.4-6.9); BASOPHIL % 0.1 % (0.0-0.4); Basophil (Absolute #) 0.01 (0-0.4); Eosinophil % 0.6 % (0.00-5.0); Eosinophil (Absolute #) 0.04 (0-0.5); Hemoglobin 12.2 gm/dl (12.0-16.0); Lymphocyte (Absolute #) 1.46 (1.0-4.6); Lymphocytes % 20.3 % (24.0-44.0); Mean Cell Volume 88.4 fl (78-100); Mean Corpuscular Hemoglobin 28.4 pg (26-32); Mean Corpuscular Hgb Concent. 32.1 g/dl (32-36); Mean Platelet Volume 9.8 fl (7.5-11.0); Monocyte (Absolute #) 0.55 (0.0-1.3); Monocytes % 7.6 % (0.0-12.0); Neutrophil % 71.4 % (36.0-66.0); Platelet Count 327 K/mm3 (150-450); White Blood Count 7.2 K/mm3 (4.0-10.5)
[2021-03-24] MEDS ORDERED: Sodium Chloride 0.9% 1000 ML 1,000 ML ONE (09:39)
--- NOTE | 2021-03-24 09:45 | ERPHSYRPT ---
- History of Present Illness Time Seen by Provider: 03/24/21 09:10 Source: patient Exam Limitations: no limitations Patient Subjective Stated Complaint: Patient states she has been having chest pain for 2 days and "dizzy spells for a long time". PAtient states she has been a "little naseous but cant get over being so dizzy". Patient states she has left early from work yesterday and today. Patient states she has severe anxiety. Triage Nursing Assessment: Patient presents to ER with complaints of chest pain 5/10. Patient states her chest feels tight and she is dizzy. VS WNL at this time. EKG sinus rythm. Physician History: Patient is a 40-year-old female presents to our ED with complaints of longstanding dizziness and chest pain for the past 2 days. Patient states that she has a history of brain surgery. Patient had surgery in 2010 for rapidly enlarging cyst. Patient had been doing well up until the last few months when her dizziness started. Patient has not followed up with her primary care doctor for any recurrent symptoms. Patient states dizziness is worse when she moves her head. Dizziness resolves at rest. Patient has been experiencing substernal chest pain for the past 2 days. Chest pain rated 5 out of 10. It is associated with mild nausea. Patient symptoms are constant. Patient denies radiation of chest pain. No trauma. No fever. No vomiting. No blurred vision. No sensorimotor changes. Symptoms are moderate in intensity. Patient voices no other complaints at this time. Timing/Duration: day(s) (2 days) Severity: moderate Modifying Factors: Improves With: nothing Associated Symptoms: nausea, No cough, No fever, No syncope, No seizure, No weakness Allergies/Adverse Reactions: bupropion HCl [From Wellbutrin] Allergy (Severe, Verified 03/24/21 09:16) Rash celecoxib [From Celebrex] Allergy (Severe, Verified 03/24/21 09:16) Rash diphtheria, pertussis, tetanus vacc Allergy (Severe, Verified 03/24/21 09:16) seizures paroxetine [From Paxil] Allergy (Severe, Verified 03/24/21 09:16) withdraw Tetanus Vaccines and Toxoid Allergy (Unknown, Verified 03/24/21 09:16) seizures Home Medications: Clonazepam 0.5 mg [Klonopin 0.5 MG] 1 mg PO TID 06/15/19 [History] Lisinopril 5 mg [Zestril 5 MG] 5 mg PO DAILY 06/15/19 [History] Primidone 50 MG [Mysoline 50Mg] 50 mg PO BID 06/15/19 [History] Albuterol Sulfate [Proair Respiclick] 90 mcg QID 12/28/20 [History] Montelukast Sodium 10 mg [Singulair 10 MG] 10 mg DAILY 12/28/20 [History] Pantoprazole 20 mg [Protonix 20MG Tablet] 20 mg PO DAILY 12/29/20 [History] Quetiapine Fumarate 100 mg [Seroquel 100 MG] 100 mg PO BID 12/29/20 [History] Quetiapine Fumarate [Seroquel] 600 mg PO HS 12/29/20 [History] Hydroxyzine HCl 10 mg PO [id number] PRN 03/24/21 [History] Hx Tetanus, Diphtheria Vaccination/Date Given: No (cant have tdap d/t seizures) Hx Influenza Vaccination/Date Given: No Hx Pneumococcal Vaccination/Date Given: No Travel Risk - International Travel Have you traveled outside of the country in past 3 weeks: No - Coronavirus Screening Are you exhibiting any of the following symptoms?: No - Vaccine Status Have you recieved a Covid-19 vaccination: No - Review of Systems Constitutional: No Symptoms, No Fever, No Chills Eyes: No Symptoms Ears, Nose, & Throat: No Symptoms Respiratory: No Symptoms, No Cough, No Dyspnea Cardiac: No Symptoms, No Chest Pain, No Edema, No Syncope Abdominal/Gastrointestinal: No Symptoms, No Abdominal Pain, No Nausea, No Vomiting, No Diarrhea Genitourinary Symptoms: No Symptoms, No Dysuria Musculoskeletal: No Symptoms, No Back Pain, No Neck Pain Skin: No Symptoms, No Rash Neurological: No Symptoms, No Dizziness, No Focal Weakness, No Sensory Changes Psychological: No Symptoms Endocrine: No Symptoms Hematologic/Lymphatic: No Symptoms Immunological/Allergic: No Symptoms All Other Systems: Reviewed and Negative - Past Medical History Pertinent Past Medical History: Yes Neurological History: Seizures ENT History: No Pertinent History Cardiac History: Congestive Heart Failure, High Cholesterol, Hypertension, Other Respiratory History: Asthma Endocrine Medical History: No Pertinent History Musculoskeletal History: Arthritis GI Medical History: No Pertinent History, GERD History: No Pertinent History Psycho-Social History: Anxiety, Bipolar, Depression Female Reproductive Disorders: No Pertinent History Other Medical History: palpatations,PREECLAMPSIA. 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 Covid one year ago,fibromyalgia - Past Surgical History Past Surgical History: Yes Neuro Surgical History: Other Cardiac: No Pertinent History Respiratory: No Pertinent History Gastrointestinal: No Pertinent History Genitourinary: No Pertinent History Musculoskeletal: No Pertinent History Female Surgical History: Section, Tubal Ligation Other Surgical History: cyst removed from brain as stated per pt in 2010, DNC with ablasion november 2020 - Social History Smoking Status: Current every day smoker How long have you smoked: years Exposure to second hand smoke: Yes Alcohol Use: Socially Drug Use: none Patient Lives Alone: No Significant Family History: no pertinent family hx - Female History Hx Last Menstrual Period: 11/30/20 Hx Now: No (tubes tied) - Nursing Vital Signs Nursing Vital Signs: Initial Vital Signs Temperature 98.4 F 03/24/21 09:05 Pulse Rate 91 H 03/24/21 09:05 Respiratory Rate 14 03/24/21 09:05 Blood Pressure 100/73 03/24/21 09:05 O2 Sat by Pulse Oximetry 100 03/24/21 09:05 Pain Scale Pain Intensity 4 - Physical Exam General Appearance: no apparent distress, alert Eye Exam: PERRL/EOMI, eyes nml inspection Ears, Nose, Throat Exam: normal ENT inspection, TMs normal, pharynx normal, moist mucous membranes Neck Exam: normal inspection, non-tender, supple, full range of motion Respiratory Exam: normal breath sounds, lungs clear, No respiratory distress Cardiovascular Exam: regular rate/rhythm, normal heart sounds, normal peripheral pulses Gastrointestinal/Abdomen Exam: soft, normal bowel sounds, No tenderness, No mass Back Exam: normal inspection, normal range of motion, No CVA tenderness, No vertebral tenderness Extremity Exam: normal inspection, normal range of motion, pelvis stable Neurologic Exam: alert, oriented x 3, cooperative, normal mood/affect, nml cerebellar function, nml station & gait, sensation nml, other, No motor deficits, No sensory deficit, No disoriented, No uncooperative, No intoxicated appearance, No depressed mood/affect, No motor weakness, No facial droop, No s lurred speech, No abnormal gait Skin Exam: normal color, warm, dry, No rash Lymphatic Exam: No adenopathy SpO2 Interpretation: normal SpO2: 100 O2 Delivery: Room Air (Dizziness when she rotates her head from side to side.) - Course Nursing assessment & vital signs reviewed: Yes EKG Interpreted by Me: RATE (82), Sinus Rhythm, NORMAL AXIS, NORMAL INTERVALS - CT Exams Head CT Interpretation: Tele-radiologist Report (CT head without contrast is normal.) Ordered Tests: Active Orders 24 hr Category Date Time Status AMA [Release AMA] OM.NOW Care 03/24/21 11:50 Active Stile Ripsaw Operator STAT Care 03/24/21 09:26 Active EKG-ER Only STAT Care 03/24/21 09:25 Active IV Insertion STAT Care 03/24/21 09:25 Active Pulse Oximetry (ED) STAT Care 03/24/21 09:25 Active CHEST 1 VIEW (PORTABLE) Stat Exams 03/24/21 09:26 Completed HEAD WITHOUT CONTRAST [CT] Stat Exams 03/24/21 09:36 Completed CBC W DIFF Stat Lab 03/24/21 09:18 Completed CMP Stat Lab 03/24/21 09:18 Completed MAGNESIUM Stat Lab 03/24/21 09:18 Completed TROPONIN Q3H Lab 03/24/21 09:18 Completed TROPONIN Q3H Lab 03/24/21 11:30 Received TROPONIN Q3H Lab 03/24/21 15:30 Ordered TROPONIN Q3H Lab 03/24/21 18:30 Ordered TROPONIN Q3H Lab 03/24/21 21:30 Ordered TSH [TSH, 3RD Generation] Stat Lab 03/24/21 09:36 Completed UA W/RFX UR CULTURE Stat Lab 03/24/21 09:26 Completed Medication Summary Generic Name Dose Route Start Last Admin Trade Name Freq PRN Reason Stop Dose Admin Magnesium Sulfate/Dextrose 100 mls @ 100 mls/hr 03/24/21 10:45 03/24/21 10:41 Magnesium 1 Gm / 100 Ml D5w IV 03/24/21 12:44 100 mls/hr Q1H GENET Administration Discontinued Medications Generic Name Dose Route Start Last Admin Trade Name Freq PRN Reason Stop Dose Admin Sodium Chloride 1,000 mls @ 999 mls/hr 03/24/21 09:25 03/24/21 10:50 Sodium Chloride 0.9% 1000 Ml IV 03/24/21 10:25 Infused .Q1H1M STA Infusion Sodium Chloride Confirm 03/24/21 09:39 Sodium Chloride 0.9% 1000 Ml Administered 03/24/21 09:40 Dose 1,000 mls @ ud .ROUTE .STK-MED ONE Potassium Chloride 40 meq 03/24/21 10:36 03/24/21 10:41 Klor Con 10 Meq PO 03/24/21 10:37 40 meq STAT ONE Administration Potassium Chloride Confirm 03/24/21 10:39 Klor Con 10 Meq Administered 03/24/21 10:40 Dose 40 meq PO .STK-MED ONE Lab/Rad Data: Laboratory Result Diagrams 03/24/21 09:18 03/24/21 09:18 Laboratory Results 03/24/21 03/24/21 03/24/21 Range/Units 09:36 09:26 09:18 WBC (4.0-10.5) K/mm3 RBC (4.1-5.4) M/mm3 Hgb (12.0-16.0) gm/dl Hct (35-47) % MCV (78-100) fl MCH (26-32) pg MCHC (32-36) g/dl RDW (11.5-14.0) % Plt Count (150-450) K/mm3 MPV (7.5-11.0) fl Gran % (36.0-66.0) % Eos # (Auto) (0-0.5) Absolute Lymphs (auto) (1.0-4.6) Absolute Monos (auto) (0.0-1.3) Lymphocytes % (24.0-44.0) % Monocytes % (0.0-12.0) % Eosinophils % (0.00-5.0) % Basophils % (0.0-0.4) % Absolute Granulocytes (1.4-6.9) Basophils # (0-0.4) Sodium (137-145) mmol/L Potassium (3.5-5.1) mmol/L Chloride (98-107) mmol/L Carbon Dioxide (22-30) mmol/L Anion Gap (5-15) MEQ/L BUN (7-17) mg/dL Creatinine (0.52-1.04) mg/dL Estimated GFR ML/MIN Glucose (74-106) mg/dL Calcium (8.4-10.2) mg/dL Magnesium (1.6-2.3) mg/dL Total Bilirubin (0.2-1.3) mg/dL AST (14-36) U/L ALT (0-35) U/L Alkaline Phosphatase (38-126) U/L Troponin I < 0.012 (0.000-0.034) ng/mL Serum Total Protein (6.3-8.2) g/dL Albumin (3.5-5.0) g/dL TSH 3rd Generation 1.360 (0.47-4.68) mIU/L Urine Color YELLOW (YELLOW) Urine Appearance CLEAR (CLEAR) Urine pH 6.0 (5-6) Ur Specific [place] 1.008 (1.005-1.025) Urine Protein NEGATIVE (Negative) Urine Ketones SMALL (NEGATIVE) Urine Blood NEGATIVE (0-5) Keyur/ul Urine Nitrite NEGATIVE (NEGATIVE) Urine Bilirubin NEGATIVE (NEGATIVE) Urine Urobilinogen NEGATIVE (0-1) mg/dL Ur Leukocyte Esterase NEGATIVE (NEGATIVE) Urine WBC (Auto) 0-2 (0-5) /HPF Urine RBC (Auto) NONE (0-2) /HPF U Hyaline Cast (Auto) 0-2 (0-2) /LPF U Epithel Cells (Auto) NONE (FEW) /HPF Urine Bacteria (Auto) NONE (NEGATIVE) /HPF Urine Culture Reflexed NO (NO) Urine Glucose NEGATIVE (NEGATIVE) mg/dL 03/24/21 03/24/21 Range/Units 09:18 09:18 WBC 7.2 (4.0-10.5) K/mm3 RBC 4.30 (4.1-5.4) M/mm3 Hgb 12.2 (12.0-16.0) gm/dl Hct 38.0 (35-47) % MCV 88.4 (78-100) fl MCH 28.4 (26-32) pg MCHC 32.1 (32-36) g/dl RDW 15.0 H (11.5-14.0) % Plt Count 327 (150-450) K/mm3 MPV 9.8 (7.5-11.0) fl Gran % 71.4 H (36.0-66.0) % Eos # (Auto) 0.04 (0-0.5) Absolute Lymphs (auto) 1.46 (1.0-4.6) Absolute Monos (auto) 0.55 (0.0-1.3) Lymphocytes % 20.3 L (24.0-44.0) % Monocytes % 7.6 (0.0-12.0) % Eosinophils % 0.6 (0.00-5.0) % Basophils % 0.1 (0.0-0.4) % Absolute Granulocytes 5.14 (1.4-6.9) Basophils # 0.01 (0-0.4) Sodium 135 L (137-145) mmol/L Potassium 3.1 L (3.5-5.1) mmol/L Chloride 101 (98-107) mmol/L Carbon Dioxide 23 (22-30) mmol/L Anion Gap 14.4 (5-15) MEQ/L BUN 9 (7-17) mg/dL Creatinine 1.03 (0.52-1.04) mg/dL Estimated GFR > 60.0 ML/MIN Glucose 96 (74-106) mg/dL Calcium 9.5 (8.4-10.2) mg/dL Magnesium 1.5 L (1.6-2.3) mg/dL Total Bilirubin 0.30 (0.2-1.3) mg/dL AST 21 (14-36) U/L ALT 10 (0-35) U/L Alkaline Phosphatase 51 (38-126) U/L Troponin I (0.000-0.034) ng/mL Serum Total Protein 7.5 (6.3-8.2) g/dL Albumin 4.8 (3.5-5.0) g/dL TSH 3rd Generation (0.47-4.68) mIU/L Urine Color (YELLOW) Urine Appearance (CLEAR) Urine pH (5-6) Ur Specific [place] (1.005-1.025) Urine Protein (Negative) Urine Ketones (NEGATIVE) Urine Blood (0-5) Keyur/ul Urine Nitrite (NEGATIVE) Urine Bilirubin (NEGATIVE) Urine Urobilinogen (0-1) mg/dL Ur Leukocyte Esterase (NEGATIVE) Urine WBC (Auto) (0-5) /HPF Urine RBC (Auto) (0-2) /HPF U Hyaline Cast (Auto) (0-2) /LPF U Epithel Cells (Auto) (FEW) /HPF Urine Bacteria (Auto) (NEGATIVE) /HPF Urine Culture Reflexed (NO) Urine Glucose (NEGATIVE) mg/dL - Progress Progress: improved Progress Note: Patient reassessed. She feels better. Potassium and magnesium were both low. Potassium and magnesium replaced. Patient received IV fluids. CT head negative for acute intracranial pathology. Patient initial troponin was negative. Second troponin pending. Patient states that she had to leave because otherwise she would not have a ride home. We advised patient to stay as the work-up was not complete. Patient declined stating that she must leave. Patient is of sound mind. Patient is appropriate to make informed and independent medical decisions. Patient understands that leaving AGAINST MEDICAL ADVICE can result in delayed diagnosis, increased risk of morbidity, mortality, short and long-term disability including . In spite of these risks, patient has decided to leave AGAINST MEDICAL ADVICE. Patient understands that he she may return to our ED at any point if he or she reconsiders. Patient agrees to follow-up with her primary care doctor within 48 hours for reevaluation. Patient voices no other complaints or concerns at this time. We will release patient AGAINST MEDICAL ADVICE per their request. 03/24/21 11:52 Portions of this note were created with voice recognition technology. There may be grammatical, spelling, punctuation or sound alike errors Counseled pt/family regarding: lab results, diagnosis, need for follow-up, rad results - Departure Departure Disposition: AMA Clinical Impression: Vertigo, Hypomagnesemia, Hypokalemia, Chest pain Condition: Stable Critical Care Time: No Referrals: MORELIA MORRIS MD [Primary Care Provider] - Additional Instructions: Discharge/Care Plan LASHAE LYLES was seen on 03/24/21 in the Emergency Room. The patient was counseled regarding Diagnosis,Lab results, Imaging studies, need for follow up and when to return to the Emergency Room. Prescriptions given: Discharge Note I have spoken with the patient and/or caregivers. I have explained the patient's condition, diagnosis and treatment plan based on the information available to me at this time. I have answered the patient's and/or caregiver's questions and addressed any concerns. The patient and/or caregivers have as good understanding of the patient's diagnosis, condition and treatment plan as can be expected at this point. The vital signs have been stable. The patient's condition is stable and appropriate for discharge from the emergency department. The patient will pursue further outpatient evaluation with the primary care edgar sician or other designated or consulting physician as outlined in the discharge instructions. The patient and/or caregivers are agreeable to this plan of care and follow-up instructions have been explained in detail. The patient and/or caregivers have received these instruction. The patient/and or caregivers are aware that any significant change in condition or worsening of symptoms should prompt an immediate return to this or the closest emergency department or call 911.
[2021-03-24 09:51] LABS: ALBUMIN 4.8 g/dL (3.5-5.0); ALKALINE PHOSPHATASE 51 U/L (38-126); ANION GAP 14.4 MEQ/L (5-15); BLOOD UREA NITROGEN 9 mg/dL (7-17); CHLORIDE 101 mmol/L (98-107); Calcium 9.5 mg/dL (8.4-10.2); Carbon Dioxide 23 mmol/L (22-30); Creatinine 1 1.03 mg/dL (0.52-1.04); EST GLOMERULAR FILTRATION RATE > 60.0 ML/MIN; Glucose 96 mg/dL (74-106); MAGNESIUM 1.5 mg/dL (1.6-2.3); Potassium 3.1 mmol/L (3.5-5.1); SGOT/AST 21 U/L (14-36); SGPT/ALT 10 U/L (0-35); SODIUM 135 mmol/L (137-145); Total Protein 7.5 g/dL (6.3-8.2)
--- NOTE | 2021-03-24 09:54 | XRAY ---
Indication: Chest pain and dizziness. Comparison: October 02, 2020. Portable chest continues to demonstrate normal heart, lungs, and bony thorax.
[2021-03-24 10:12] VITALS: BP 109/75
--- NOTE | 2021-03-24 10:28 | XRAY ---
Indication: Dizziness. Colloid cyst removal 2010. Multiple contiguous axial images obtained through the head without contrast. Comparison: None Ventriculosulcal pattern appears symmetric. Anatomic variant for cavum septum pellucidum. No acute intracranial hemorrhage, abnormal extra-axial fluid collection, or mass effect. Fourth ventricle is midline without hydrocephalus. English-white matter differentiation preserved. Bony calvarium intact with previous frontal craniotomy. Visualized paranasal sinuses and mastoid air cells are clear. Impression: Incidental frontal craniotomy and cavum septum pellucidum. Remaining CT head without contrast exam is normal.
[2021-03-24] MEDS ORDERED: Klor Con 10 MEQ PO ONE ×2 (10:36→10:39)
[2021-03-24 10:39] VITALS: O2SAT 100
[2021-03-24] MEDS ORDERED: Magnesium 1 Gm / 100 Ml D5W*** 200 ML IV ONE (10:40)
[2021-03-24] MEDS: Magnesium 1 Gm / 100 Ml D5W*** 100 ML IV SCH (10:41)
[2021-03-24 11:04] VITALS: PULSE 94
[2021-03-24 11:28] LABS: Appearance CLEAR (CLEAR); Bilirubin NEGATIVE (NEGATIVE); Blood NEGATIVE Ery/ul (0-5); Glucose NEGATIVE (NEGATIVE); Hyaline Casts 0-2 /LPF (0-2); Ketones SMALL (NEGATIVE); Leukocyte Esterase NEGATIVE (NEGATIVE); Nitrite NEGATIVE (NEGATIVE); Protein,Urine Dip NEGATIVE (Negative); Specific Gravity 1.008 (1.005-1.025); Urobilinogen NEGATIVE mg/dL (0-1); WBC 0-2 /HPF (0-5)
== END 2021-03-24 11:57 | disposition left against medical advice (07) ==
LOC: ED 09:04
DX: R42 Dizziness and giddiness (principal); E83.42 Hypomagnesemia; E87.6 Hypokalemia; R07.9 Chest pain, unspecified
CPT/HCPCS: 36000; 36415; 70450; 71045; 80053; 81001; 83735; 84443; 84484; 85025; 93005; 93041; 94760; 96360; 96365; 99285; J3475; A9270-GY